=== PATIENT | female | born 1970 | race African-American/Black ===

== ENCOUNTER 2024-01-04 07:32 | Inpatient (IN) | payer OTHER, SELFPAY ==
[2024-01-04] VITALS (10 sets, daily range): BP systolic 145–164; BP diastolic 97–107; PULSE 83–109; RESP 16–20; TEMP 36.6–36.9; O2SAT 96–100; BMI 29.4; BMI 30.2
--- NOTE | ~2024-01-04 | CT_ITS ---
EXAMINATION: CT ABDOMEN AND PELVIS WITH CONTRAST CLINICAL INFORMATION: Epigastric pain. Nausea and vomiting. History of pancreatitis. COMPARISON: None available. TECHNIQUE: Multidetector volumetric images were obtained from the superior aspect of the liver through the pubic symphysis following administration 85 mL of Omnipaque 350 intravenous contrast. Sagittal and coronal reformatted images were obtained on the technologist's workstation. Oral contrast: No This CT examination was performed using dose optimization techniques as appropriate, variously including the following: *Automated exposure control *Adjustment of mA and/or kV according to patient size (this includes techniques or standardized protocols for targeted exams where dose is matched to indication/reason for exam; i.e. extremities or head) *Use of iterative reconstruction technique DLP: 562 mGy-cm FINDINGS: Visualized lung bases demonstrate mild dependent atelectasis. The liver is enlarged and demonstrates diffusely decreased attenuation. Ill-defined hypodensity adjacent to the falciform ligament is nonspecific but most suggestive of a region of more focal fatty infiltration. The gallbladder is normal in appearance. The pancreas is normal in size and demonstrates relatively homogeneous enhancement. There is prominent peripancreatic stranding/fluid, however, a well organized peripancreatic fluid collection is not present. The spleen is normal in size. Symmetrically enhancing kidneys. There is no hydronephrosis of either kidney. The adrenal glands are unremarkable. Normal stomach distention. Normal caliber loops of small and large bowel. There is mild colonic diverticulosis without CT evidence to suggest active diverticulitis. Normal appendix. Mild circumferential fatty mucosal infiltration of the proximal and mid colon, nonspecific. Normal caliber abdominal aorta demonstrating only minimal atherosclerotic disease. No retroperitoneal lymphadenopathy. Tiny fat-containing umbilical hernia. The bladder is normal in appearance. The uterus is surgically absent. No gross free pelvic fluid. No inguinal lymphadenopathy. Mild diffuse degenerative changes of the spine. CT/CT abdomen pelvis w IV con IMPRESSION: 1. CT findings most consistent with acute pancreatitis. Correlation with amylase and lipase recommended. 2. Hepatomegaly with diffusely decreased liver attenuation suggesting hepatic steatosis. Correlation with liver enzymes recommended. 3. Mild colonic diverticulosis without CT evidence to suggest active diverticulitis. 4. Mild circumferential fatty mucosal infiltration of the proximal and mid colon, nonspecific. Fleischner guidelines were followed. Electronically signed by: Vasquez Swenson MD 01/04/2024 11:06 AM EDT
[2024-01-04 08:02] LABS: MANUAL DIFF FLAG NO
--- NOTE | 2024-01-04 08:15 | ED_ITS ---
HPI - Abdominal Pain General Chief Complaint: Abdominal Pain Stated Complaint: Pancreatitis Time Seen by Provider: 01/04/24 07:59 Source: patient Mode of arrival: ambulatory Limitations: no limitations History of Present Illness ED Provider: AMINATA MCKAY narrative: 53 yo female with PMH of HTN, fibromyalgia, 3 years ago had ETOH induced pancreatitis - she notes she ate crab and lobster with wine on Monday and woke up yesterday AM with n/v and abdominal pain and bloating. She thinks she has pancreatitis again. She has no fevers. She cannot keep anything down. No one else is sick. No prior abdominal surgeries. She notes she only drinks on special occasions MD elicited complaint: abdominal pain Pertinent past history: other (pancreatitis) Onset (ago): day(s) (1) Pain Consistency: constant Location: epigastric Severity: severe Quality: stabbing Radiation: bilateral flank and back Migration to: no migration Exacerbating factors: eating and movement Context: history of similar episodes Associated symptoms: nausea and vomiting Related Data Allergies Allergy/AdvReac Type Severity Reaction Status Date / Time No Known Allergies Allergy Verified 01/04/24 07:45 Review of Systems Review of Systems Constitutional : No Weight loss, No Fever, No Chills ENT/Mouth : No sore throat, No Rhinorrhea Eyes: No Swelling, No Redness Cardiovascular : No Chest Pain, No SOB, NoEdema Respiratory : No Cough, No Sputum, No Wheezing Gastrointestinal : Positive Nausea, Positive Vomiting, no Diarrhea, positive abdominal Pain, No Hematochezia, No Melena Genitourinary : No Dysuria, No Urinary Frequency, No Hematuria, No Urgency Musculoskeletal : No joint pain, No Myalgias, No Joint Swelling Skin : No Skin Lesions, No rash Neuro : No Weakness, No Numbness, No Dizziness, No Headache All other systems reviewed and are negative. [facility] Past Medical History Attestation statement: The following information was validated with the patient. Medical History Pancreatitis Fibromyalgia HTN (hypertension) Social History Social History (Updated 01/04/24 @ 08:27 by Vivienne Carrasco DO) Alcohol intake: current Alcohol intake frequency: holidays/special occasions only Patient Tobacco Use Status: Never used Tobacco Advance Directives: No Advance Directives Information Provided: No Do you have a plan to hurt others: No Plan Patient : No Physical Exam ED Vital Signs: Vital Signs - 24 hr 01/04/24 07:40 01/04/24 08:12 01/04/24 10:07 Temperature 98.5 F Pulse Rate 99 109 H 109 H Respiratory Rate 20 17 Blood Pressure 154/103 H 146/97 H Pulse Oximetry 100 99 96 Oxygen Delivery Method Room Air Room Air Room Air BMI result Body Mass Index 29.4 Appearance: Alert. Oriented X3. appears in pain mild acute distress. Eyes: Pupils equal, round and reactive to light. ENT: Pharynx dry MM Neck: Normal inspection. Neck supple. CVS: Normal heart rate and rhythm. Pulses normal. Respiratory: No respiratory distress. Breath sounds normal. Abdomen: Soft and moderate epigastric pain no rebound. Skin: Skin warm and dry. pale skin color. Normal skin turgor. Extremities: No lower extremity edema. Neuro: Oriented X 3. No motor deficit. No sensory deficit. Medical Decision Making Medical Decision Making [facility] Narrative: 53 yo female with PMH of HTN, fibromyalgia, ETOH induced pancreatitis here with c/o n/v and epigastric pain after drinking on Monday at this time will need basic labs, IVF x 1L, IV dilaudid for pain and CT scan for pancreatitis. She denies concerns for ETOH withdrawal. Differential Diagnosis Differential Diagnoses: The differential diagnosis associated with the presentation includes GERD< gastritis, pancreatitis, biliary colic, PUD, enteritis Admission/Observation Consideration of admission/observation: Escalation of care including admission/observation considered admit for pain control and pancreatitis Consult Healthcare Provider Management of the patient was discussed with: Hospitalist (will admit) Lab Data [facility] Lab Attestation statement: I reviewed the patient's lab results. 01/04/24 07:58 01/04/24 07:58 Labs: Lab Results 01/04/24 01/04/24 Range/Units 07:58 10:02 WBC 9.5 (4.8-10.8) X10*3/uL RBC 4.34 (4.20-5.50) X10*6/uL Hgb 15.1 (12.0-16.0) g/dl Hct 40.4 (37.0-47.0) % MCV 93.1 (80.0-98.0) fL MCH 34.8 H (27.0-33.0) pg MCHC 37.4 H (31.0-35.0) g/dl RDW 14.1 (11.0-16.0) % Plt Count 219 (160-400) X10*3/uL MPV 11.0 (9.4-12.3) fL Immature Gran % (Auto) 0.5 H (0.0-0.4) % Neut % (Auto) 78.2 H (45-73) % Lymph % (Auto) 13.4 L (20-40) % [place] % (Auto) 7.6 (2-11) % Eos % (Auto) 0.1 (0-4) % Baso % (Auto) 0.2 (0-2) % Lymph # (Auto) 1.3 (1.2-4.9) X10*3/uL [place] # (Auto) 0.7 (0.1-1.2) X10*3/uL Eos # (Auto) 0.0 (0.0-0.4) X10*3/uL Baso # (Auto) 0.0 (0.0-0.2) X10*3/uL Abs Immat Gran (auto) 0.05 H (0.00-0.03) X10*3/uL Absolute Neuts (auto) 7.4 (2.0-8.3) x10*3/uL Absolute Nucleated RBC 0.000 (0.0-0.012) X10*3/uL Nucleated RBC % (auto) 0.0 (0.0-0.2) /100WBC Sodium 138 (135-145) mmol/L Potassium 3.3 (3.3-5.1) mmol/L Chloride 95 L (96-108) mmol/L Carbon Dioxide 25 (22-29) mmol/L Anion Gap 21 H (12-20) BUN 5 L (9-16) mg/dL Creatinine 0.68 (0.5-1.4) mg/dL Estim Creat Clear Calc 94.0 Estimated GFR > 60 Random Glucose 117 H (60-115) mg/dL Calcium 9.5 (8.4-10.2) mg/dL Total Bilirubin 1.5 H (0.0-1.0) mg/dL AST 69 H (5-31) U/L ALT 51 H (0-31) U/L Alkaline Phosphatase 115 (39-117) U/L Lactate Dehydrogenase 337 H (122-220) U/L Total Protein 8.4 H (6.5-8.0) g/dL Albumin 4.4 (3.5-5.0) g/dL Lipase 353 H (8-78) U/L Beta HCG, Quant < 2 mIU/mL Urine Color Yellow Urine Appearance Clear Urine pH 7.0 (5.0-9.0) Ur Specific [place] 1.025 (1.005-1.025) Urine Protein Trace (Neg-Trace) mg/dL Urine Glucose (UA) Negative (Negative) mg/dL Urine Ketones 40 (Negative) mg/dL Urine Blood Negative (Negative) Urine Nitrite Negative (Negative) Ur Leukocyte Esterase Negative (Negative) Ethyl Alcohol < 10 mg/dL Independent Interpretation I performed an independent interpretation of an: CT Scan (pancreatitis) Radiology Impression Discussion of test interpretation with radiology: I have reviewed the radiologist's reading. Independent Historian Clinical information obtained from an independent historian. History obtained from or confirmed by: Spouse Medications Administered Discontinued Medications Generic Name Dose Route Start Last Admin Trade Name Freq PRN Reason Stop Dose Admin Hydromorphone HCl 1 mg 01/04/24 08:16 01/04/24 08:35 Hydromorphone Hcl 1 Mg/Ml Syringe IVPUSH 01/04/24 08:17 1 mg ONCE ONE Administration Protocol Hydromorphone HCl 1 mg 01/04/24 08:46 01/04/24 08:50 Hydromorphone Hcl 1 Mg/Ml Syringe IVPUSH 01/04/24 08:47 1 mg ONCE ONE Administration Protocol Hydromorphone HCl 1 mg 01/04/24 09:51 01/04/24 09:59 Hydromorphone Hcl 1 Mg/Ml Syringe IVPUSH 01/04/24 09:52 1 mg ONCE ONE Administration Protocol Lactated Ringer's 1,000 mls @ 999 mls/hr 01/04/24 08:16 01/04/24 09:45 Lr IV 01/04/24 09:16 Infused .Q1H1M ONE Infusion Acetaminophen 1,000 mg in 100 mls @ 400 mls/hr 01/04/24 09:51 01/04/24 10:21 Ofirmev IV 01/04/24 10:05 Infused ONCE ONE Infusion Iohexol 85 ml 01/04/24 09:43 01/04/24 09:44 Iohexol 350 Mg/Ml 75 Ml Infus..Btl IV 01/04/24 09:44 85 ml ONCE ONE Administration Ondansetron HCl 4 mg 01/04/24 08:16 01/04/24 08:35 Ondansetron Hcl 4 Mg/2 Ml Vial IVPUSH 01/04/24 08:17 4 mg ONCE ONE Administration Critical Care Time Critical Care Time Critical Care Time: Yes Total Critical Care Time: 60 Attestation: repeat IV dilaudid x 3, admission, repeat assessments I attest to this time spent taking care of the patient Discharge Plan Discharge Clinical Impression: Abdominal pain, Pancreatitis Patient Disposition: Admitted As Inpatient Print Language: Yi
[2024-01-04 08:23] LABS: Basophils Percent Auto 0.2 % (0-2); Eosinophils Percent Auto 0.1 % (0-4); Hematocrit 40.4 % (37.0-47.0); Hemoglobin 15.1 g/dl (12.0-16.0); Imm Gran Abs Auto 0.05 X10*3/uL (0.00-0.03); Imm Gran Pct Auto 0.5 % (0.0-0.4); Lymphocytes Absolute Auto 1.3 X10*3/uL (1.2-4.9); Lymphocytes Percent Auto 13.4 % (20-40); Mean Corpuscular HGB Conc 37.4 g/dl (31.0-35.0); Mean Corpuscular Hemoglobin 34.8 pg (27.0-33.0); Mean Corpuscular Volume 93.1 fL (80.0-98.0); Monocytes Absolute Auto 0.7 X10*3/uL (0.1-1.2); Monocytes Percent Auto 7.6 % (2-11); Neutrophils Absolute Auto 7.4 x10*3/uL (2.0-8.3); Neutrophils Percent Auto 78.2 % (45-73); Platelet Count 219 X10*3/uL (160-400); Red Blood Count 4.34 X10*6/uL (4.20-5.50); Red Cell Distribution Width 14.1 % (11.0-16.0); White Blood Count 9.5 X10*3/uL (4.8-10.8)
[2024-01-04 08:33] LABS: Alanine Aminotransferase 51 U/L (0-31); Albumin Level 4.4 g/dL (3.5-5.0); Alkaline Phosphatase 115 U/L (39-117); Anion Gap 21 (12-20); Aspartate Amino Transferase 69 U/L (5-31); Bilirubin Total 1.5 mg/dL (0.0-1.0); Blood Urea Nitrogen 5 mg/dL (9-16); Calcium 9.5 mg/dL (8.4-10.2); Carbon Dioxide 25 mmol/L (22-29); Chloride 95 mmol/L (96-108); Estimated Glomerular Filt Rate > 60; Glucose Random 117 mg/dL (60-115); HCG Quantitative < 2 mIU/mL; Lactate Dehydrogenase 337 U/L (122-220); Potassium 3.3 mmol/L (3.3-5.1); Sodium 138 mmol/L (135-145); Total Protein 8.4 g/dL (6.5-8.0)
[2024-01-04] MEDS: HYDROmorphone HCl 1 MG/ML SYRINGE IVPUSH ×4 (08:35→12:46)
[2024-01-04] MEDS: ondansetron HCL 4 MG/2 ML VIAL IVPUSH ×2 (08:35→17:42)
[2024-01-04] MEDS: Lactated Ringers 1,000 ML 999 ML IV (08:35)
[2024-01-04 08:52] LABS: Ethanol < 10 mg/dL
[2024-01-04] MEDS: iohexoL 350 MG/ML 75 ML INFUS..BTL 85 ML IV (09:44)
[2024-01-04] MEDS: Acetaminophen 1,000 MG/100 ML PIGGYBACK 400 MG IV (09:59)
[2024-01-04 10:28] LABS: Lipase 353 U/L (8-78)
[2024-01-04 10:37] LABS: Appearance Urine Clear; Color Urine Yellow; Glucose Urine UA Negative (Negative); Leukocyte Esterase Urine Negative (Negative); Nitrite Urine Negative (Negative); Specific Gravity - Urine 1.025 (1.005-1.025); Urine Blood Negative (Negative); Urine Ketones 40 mg/dL (Negative); Urine Protein Trace mg/dL (Neg-Trace)
[2024-01-04] MEDS: Lactated Ringers 1,000 ML 100 ML IVCONT ×2 (11:24→21:05)
--- NOTE | 2024-01-04 11:40 | P.HPHOSP_ITS ---
History of Present Illness Date of Service: 01/04/24 Attending physician on admission: Mati Lee Chief Complaint: Abdominal pain Pt is a 53-year-old female with a PMH significant for?HTN, diverticulitis, GERD, and mood disorder who presents to the ED with?nausea, vomiting, and epigastric abdominal pain radiating to back since yesterday. Patient reports she and her went out to eat Monday night where she ate lobster and crabs, and drank a glass of wine and two mixed drinks. Pt awoke the next morning feeling bloated, distended, and with central abdominal pain that radiated to her back. Took some antacids, Tylenol, and Pepto-Bismol to no effect. Soon developed nausea, vomiting, and worsening abdominal pain. This morning pain was significantly increased to the point where patient could not get out of bed. Patient had previous episode of acute pancreatitis 3 years ago seen at [facility]. [place] symptoms were similar to then, so came to the ED for further evaluation. Patient denies chest pain/pressure, palpitations. No fever or chills. Denies SOB or difficulty breathing. Pt reports drinking around 5 drinks per week, usually wine with dinner. Denies daily alcohol consumption. In the ED pt was tachycardic up to 109 and hypertensive up to 154/103. Labs were significant for bilirubin 1.5, AST 69, ALT 51, lactate dehydrogenase 337, and lipase 353. No leukocytosis. Stable H& H. No significant electrolyte abnormalities. Renal function baseline. UA negative for UTI. ETOH undetectable. CT of abdomen and pelvis prominent peripancreatic stranding consistent with acute pancreatitis. Also found hepatomegaly with diffusely decreased liver attenuation suggestive of hepatic steatosis. Pt was treated with 2L IVF, ondansetron, hydromorphone, and acetaminophen. Pt will be admitted to the hospital for treatment further evaluation of acute pancreatitis likely secondary to alcohol use. Review of Systems 2 Review of Systems: Yes all other systems are reviewed and are negative [facility] Medical History Pancreatitis Fibromyalgia HTN (hypertension) Social History Alcohol intake: current Alcohol intake frequency: holidays/special occasions only Patient Tobacco Use Status: Never used Tobacco Advance Directives: No Advance Directives Information Provided: No Do you have a plan to hurt others: No Plan Patient : No Meds Allergies Allergy/AdvReac Type Severity Reaction Status Date / Time No Known Allergies Allergy Verified 01/04/24 07:45 Active Medications: Current Medications Lactated Ringer's (Lr) 1,000 mls @ 100 mls/hr IVCONT .Q10H BRIANDA Last Admin: 01/04/24 11:24 Dose: 100 mls/hr Home Medications ?Medication ?Instructions ?Recorded ?Confirmed ?Last Taken ?Type amlodipine 10 mg tablet 10 mg PO DAILY 01/04/24 Unknown History citalopram 20 mg tablet 20 mg PO DAILY 01/04/24 Unknown History gabapentin 600 mg tablet 600 mg PO TID 01/04/24 Unknown History omeprazole 40 mg capsule,delayed 40 mg PO BID 01/04/24 Unknown History release ondansetron HCl 4 mg tablet 4 mg PO Q8H PRN Nausea And Vomiting 01/04/24 Unknown History sucralfate 1 gram tablet 1 g PO QID 01/04/24 Unknown History Physical Exam 2 Vital Signs and Narrative: Vital Signs: Last Vital Signs Temp 98.5 F 01/04/24 07:40 Pulse 109 H 01/04/24 10:07 Resp 17 01/04/24 10:07 BP 146/97 H 01/04/24 10:07 Pulse Ox 96 01/04/24 10:07 O2 Del Method Room Air 01/04/24 10:07 BMI result Body Mass Index 29.4 Constitutional: Alert, looks uncomfortable, in no acute distress. Mental Status: Oriented to person, place and time. Eyes: Pupils are equal, round, and reactive to light. Ear, Nose, and Throat: Oropharynx clear, mucous membranes moist. Ears and nose without deformities. Trachea midline. Respiratory: Clear to auscultation bilaterally. No wheezing, rales, or rhonchi. Cardiovascular: S1, S2 regular. No murmurs, rubs, or gallops. Gastrointestinal: Abdomen soft, non-distended, with epigastric and LUQ tenderness. +BS Neurologic: Cranial nerves II-XII are grossly intact bilaterally. No focal neurological deficits. Moves all extremities spontaneously. Skin: Warm, dry. Extremities: No edema. Psychiatric: Normal mood and affect. Results Labs 01/04/24 07:58 01/04/24 07:58 Labs: Laboratory Results - last 24 hr 01/04/24 01/04/24 07:58 10:02 MCV 93.1 MCH 34.8 H MCHC 37.4 H RDW 14.1 Plt Count 219 MPV 11.0 Immature Gran % (Auto) 0.5 H Neut % (Auto) 78.2 H Lymph % (Auto) 13.4 L [place] % (Auto) 7.6 Eos % (Auto) 0.1 Baso % (Auto) 0.2 Lymph # (Auto) 1.3 [place] # (Auto) 0.7 Eos # (Auto) 0.0 Baso # (Auto) 0.0 Abs Immat Gran (auto) 0.05 H Absolute Neuts (auto) 7.4 Absolute Nucleated RBC 0.000 Nucleated RBC % (auto) 0.0 Anion Gap 21 H Estim Creat Clear Calc 94.0 Estimated GFR > 60 Random Glucose 117 H Calcium 9.5 Total Bilirubin 1.5 H AST 69 H ALT 51 H Alkaline Phosphatase 115 Lactate Dehydrogenase 337 H Total Protein 8.4 H Albumin 4.4 Lipase 353 H Beta HCG, Quant < 2 Urine Color Yellow Urine Appearance Clear Urine pH 7.0 Ur Specific [place] 1.025 Urine Protein Trace Urine Glucose (UA) Negative Urine Ketones 40 Urine Blood Negative Urine Nitrite Negative Ur Leukocyte Esterase Negative Ethyl Alcohol < 10 Imaging Radiologist's Impressions: Impressions Abdomen/Pelvis CT 01/04/24 09:41 IMPRESSION: 1. CT findings most consistent with acute pancreatitis. Correlation with amylase and lipase recommended. 2. Hepatomegaly with diffusely decreased liver attenuation suggesting hepatic steatosis. Correlation with liver enzymes recommended. 3. Mild colonic diverticulosis without CT evidence to suggest active diverticulitis. 4. Mild circumferential fatty mucosal infiltration of the proximal and mid colon, nonspecific. Fleischner guidelines were followed. Electronically signed by: Vasquez Swenson MD 01/04/2024 11:06 AM EDT Assessment and Plan (1) Pancreatitis: Qualifiers: Acute pancreatitis complication: no infection or necrosis Chronicity: a cute Pancreatitis type: alcohol induced Qualified Code(s): K85.20 - Alcohol induced acute pancreatitis without necrosis or infection Status: Acute Plan Pt is a 53-year-old female with a PMH significant for?HTN, diverticulitis, GERD, and mood disorder who presents to the ED with?nausea, vomiting, and epigastric abdominal pain radiating to back since yesterday. Pt will be admitted to the hospital for treatment further evaluation of acute pancreatitis likely secondary to alcohol use. Acute pancreatitis Epigastric abd pain radiating to back, elevated lipase, CT showing peripancreatic stranding Likely secondary to alcohol use Triglycerides WNL, no CBD dilation Bowel rest, IVF, pain management Alcohol dependence Pt reports drinks around 5 drinks per week, mostly wine with dinner CT showing hepatic steatosis Monitor on CIWA HTN Continue amlodipine Fibromyalgia Continue gabapentin GERD Continue PPI Full Code Attending:?Dr. Lee DVT Prophylaxis: Lovenox Pt will require a hospitalization of at least two nights for treatment of?acute pancreatitis likely secondary to alcohol use that will require bowel rest, IVF, and IV analgesics. Quality Stroke Does the patient have a stroke diagnosis?: No VTE Prior VTE?: No VTE Risk Level:: Medical - moderate - high VTE Device Contraindication: Treatment Not Indicated VTE Drug Contraindication: N/A - Med Ordered
[2024-01-04 12:06] LABS: Cholesterol 248 mg/dL (<200); HDL Cholesterol 131 mg/dL (>40); LDL Cholesterol Calculated 98 mg/dL (<100); Triglycerides 95 mg/dL (<150)
[2024-01-04] MEDS: Enoxaparin Sodium 40 MG/0.4 ML SYRINGE SUBCUT (13:04)
--- NOTE | 2024-01-04 14:02 | PHA.MEDREC ---
Addendum entered by Brian Cherry RPh 01/04/24 14:23: MED REC CHECKED BY [facility] Original Note: Pharmacy Consult ? Medication Reconciliation Pharmacy has completed the medication reconciliation. Spoke to patient to confirm med list. Patient was able to name off her medications and frequency. Patient states she is no longer taking Citalopram [address] mg[address] just put her on Vitamin B-12, Vitamin C, and Vitamin D, however patient didn't know the dose.
--- NOTE | 2024-01-04 15:00 | PC.NURSE ---
Pt states she feels her pain is uncontrolled. asking for larger dose of dilaudid more frequently.
[2024-01-04] MEDS: Acetaminophen 325 MG TABLET 650 MG PO ×2 (16:06→23:32)
[2024-01-04] MEDS: Sucralfate 1 GM TABLET PO ×2 (16:06→20:59)
--- NOTE | 2024-01-04 16:45 | PC.NURSE ---
assumed care of pt at 1500, pt reporting con't 01/27 LUQ pain. per prior RN pt had been recieving dilaudid 1mg q 4 hr with pain relief lasting ~ 1hr after administration. PRN order for 0.5 mg dilaudid changed to 1mg dilaudid but pt reporting that the medication is not enough to control her pain. provider notified for clarification of pain management
[2024-01-04] MEDS: HYDROmorphone HCl 0.5 MG/0.5 ML SYRINGE 1 MG IVPUSH ×2 (17:19→20:59)
[2024-01-04] MEDS: Lidocaine 4 % Patch ADH..PATCH 1 PATCH TRANSDERMA (17:42)
--- NOTE | 2024-01-04 20:28 | PC.NURSE ---
provider aware of elevated bp, plan to restart bp medication in am. pt currently reporting increased abd pain w PO intake.
[2024-01-04] MEDS: Melatonin 3 MG TABLET 6 MG PO (20:59)
[2024-01-04] MEDS: Gabapentin 600 MG TABLET PO (20:59)
[2024-01-04] MEDS: Omeprazole 40 MG CAPSULE.DR PO (20:59)
[2024-01-05 00:17] VITALS: RESP 17
[2024-01-05] MEDS: HYDROmorphone HCl 0.5 MG/0.5 ML SYRINGE 1 MG IVPUSH ×6 (00:17→19:44)
[2024-01-05 03:21] VITALS: BP 158/97; PULSE 95; RESP 16; TEMP 36.8; O2SAT 96
[2024-01-05 04:26] VITALS: RESP 16
[2024-01-05 06:19] LABS: Anion Gap 18 (12-20); Blood Urea Nitrogen 5 mg/dL (9-16); Calcium 8.6 mg/dL (8.4-10.2); Carbon Dioxide 29 mmol/L (22-29); Chloride 91 mmol/L (96-108); Creatinine Clr Calc Pharmacy 122.2; Estimated Glomerular Filt Rate > 60; Glucose Random 85 mg/dL (60-115); Magnesium 0.8 mg/dL (1.6-2.6); Sodium 135 mmol/L (135-145)
[2024-01-05] MEDS: Lactated Ringers 1,000 ML 100 ML IVCONT ×3 (06:21→20:02)
[2024-01-05] MEDS: Magnesium Sulfate/H2O 2 GM/50 ML PIGGYBACK IV ×2 (06:28→08:26)
[2024-01-05 08:00] VITALS: BP 134/92; PULSE 109; RESP 16; TEMP 36.7; O2SAT 92
[2024-01-05] MEDS: ondansetron HCL 4 MG/2 ML VIAL IVPUSH (08:16)
[2024-01-05] MEDS: Lidocaine 4 % Patch ADH..PATCH 1 PATCH TRANSDERMA (08:19)
[2024-01-05] MEDS: Potassium Chloride ER 20 MEQ TAB.ER.PRT 40 MEQ PO (08:20)
[2024-01-05] MEDS: Sucralfate 1 GM TABLET PO ×4 (08:21→20:01)
[2024-01-05] MEDS: amLODIPine Besylate 10 MG TABLET PO (08:21)
[2024-01-05] MEDS: Omeprazole 40 MG CAPSULE.DR PO ×2 (08:21→20:02)
[2024-01-05] MEDS: Gabapentin 600 MG TABLET PO ×3 (08:21→20:02)
[2024-01-05] MEDS: Multivitamin TABLET 1 TAB PO (08:21)
[2024-01-05] MEDS: 0.9 % Sodium Chloride Flush 3 ML SYRINGE IVFLUSH (08:31)
--- NOTE | 2024-01-05 10:40 | MHC.CM.PN ---
pt lives with has no previous services is independent has own ride home dc plan home no services
[2024-01-05] MEDS: Enoxaparin Sodium 40 MG/0.4 ML SYRINGE SUBCUT (14:06)
--- NOTE | 2024-01-05 14:12 | HO.PM.IMPN ---
Subjective Subjective Date of Service: 01/05/24 Interval History: acute pancreaitis Review of Systems has similar abd pain feels constipated no fevers Physical Exam Vital Signs: Vital Signs: Last Vital Signs Temp 98.1 F 01/05/24 08:00 Pulse 109 H 01/05/24 08:00 Resp 16 01/05/24 08:00 BP 134/92 H 01/05/24 08:00 Pulse Ox 92 01/05/24 08:00 O2 Del Method Room Air 01/05/24 08:00 BMI result Body Mass Index 30.2 Appearance: Alert.? Oriented X3.? cvs: rrr, [id number] , no murmur res: clear to auscultation ,no rhonchii or wheezing abd: no rebound or guarding ,epigastric/luq , bs present. ext pulses present , no cyanosis . neuro: axo3 , nonfocal. Objective Data Active Medications Acetaminophen (Acetaminophen 325 Mg Tablet) 650 mg PO Q6H PRN PRN Reason: Pain, Mild (Pain Scale 1-3), fever or headache Last Admin: 01/04/24 23:32 Dose: 650 mg Documented By: ROSHAN Amlodipine Besylate (Amlodipine Besylate 10 Mg Tablet) 10 mg PO DAILY [facility]; Protocol Last Admin: 01/05/24 08:21 Dose: 10 mg Documented By: NIESHA Benzonatate (Benzonatate 100 Mg Capsule) 100 mg PO TID PRN PRN Reason: Cough Bisacodyl (Bisacodyl 10 Mg Supp.Rect) 10 mg SC BEDTIME [facility] Calcium Carbonate (Calcium Carbonate 750 Mg Tab.Chew) 750 mg PO Q4H PRN PRN Reason: Heartburn Docusate Sodium (Docusate Sodium 100 Mg/10 Ml Liquid) 100 mg PO BID [facility] Enoxaparin Sodium (Enoxaparin Sodium 40 Mg/0.4 Ml Syringe) 40 mg SUBCUT Q24H [facility] Last Admin: 01/05/24 14:06 Dose: 40 mg Documented By: NIESHA Gabapentin (Gabapentin 600 Mg Tablet) 600 mg PO TID [facility] Last Admin: 01/05/24 08:21 Dose: 600 mg Documented By: NIESHA Hydromorphone HCl (Hydromorphone Hcl 0.5 Mg/0.5 Ml Syringe) 1 mg IVPUSH Q3H PRN; Protocol PRN Reason: Pain, Severe (Pain Scale 7-10) Last Admin: 01/05/24 12:30 Dose: 1 mg Documented By: NIESHA Lactated Ringer's (Lr) 1,000 mls @ 100 mls/hr IVCONT .Q10H [facility] Last Admin: 01/05/24 06:21 Dose: 100 mls/hr Documented By: NIESHA Lidocaine (Lidocaine 4 % Patch Adh..Patch) 1 patch TRANSDERMA DAILY [facility]; Protocol Last Admin: 01/05/24 08:19 Dose: 1 patch Documented By: NIESHA Magnesium Hydroxide (Milk Of Magnesia 30 Ml Oral.Susp) 30 ml PO DAILY PRN PRN Reason: Constipation Melatonin (Melatonin 3 Mg Tablet) 6 mg PO BEDTIME PRN PRN Reason: Insomnia Last Admin: 01/04/24 20:59 Dose: 6 mg Documented By: LATHA-ZADRCaitlin Multivitamins/Vitamin C (Multivitamin Tablet) 1 tab PO DAILY [facility] Last Admin: 01/05/24 08:21 Dose: 1 tab Documented By: NIESHA Omeprazole (Omeprazole 40 Mg Capsule.) 40 mg PO BID [facility] Last Admin: 01/05/24 08:21 Dose: 40 mg Documented By: NISEHA Ondansetron HCl (Ondansetron Hcl 4 Mg/2 Ml Vial) 4 mg IVPUSH Q8H PRN PRN Reason: Nausea and Vomiting Last Admin: 01/05/24 08:16 Dose: 4 mg Documented By: NIESHA Sodium Chloride (0.9 % Sodium Chloride Flush 3 Ml Syringe) 3 ml IVFLUSH QSHIFT [facility] Last Admin: 01/05/24 08:31 Dose: 3 ml Documented By: NIESHA Sucralfate (Sucralfate 1 Gm Tablet) 1 gm PO QID [facility] Last Admin: 01/05/24 14:07 Dose: 1 gm Documented By: NIESHA Labs 01/04/24 07:58 01/05/24 05:24 Labs: Laboratory Results - last 24 hr 01/05/24 05:24 Anion Gap 18 Estim Creat Clear Calc 122.2 Estimated GFR > 60 Random Glucose 85 Calcium 8.6 D Magnesium 0.8 L* Assessment and Plan (1) Pancreatitis: Status: Acute (2) Abdominal pain: Status: Acute Assessment and Plan: 53-year-old female with a PMH significant for?HTN, diverticulitis, GERD, and mood disorder who presents to the ED with?nausea, vomiting, and epigastric abdominal pain radiating to back since yesterday. Pt will be admitted to the hospital for treatment further evaluation of acute pancreatitis likely secondary to alcohol use. Acute pancreatitis Epigastric abd pain radiating to back, elevated lipase, CT showing peripancreatic stranding abd pain improving Likely secondary to alcohol use Triglycerides WNL, no CBD dilation. plan:Bowel rest, IVF, pain management constipation: colace ,biscodyl Alcohol dependence Pt reports drinks around 5 drinks per week, mostly wine with dinner CT showing hepatic steatosis Monitor on CIWA HTN Continue amlodipine Fibromyalgia Continue gabapentin GERD Continue PPI Full Code DVT Prophylaxis: Lovenox ongoing hospitalization need for treatment of?acute pancreatitis likely secondary to alcohol use that will require bowel rest, IVF, and IV analgesics Quality Stroke Does the patient have a stroke diagnosis?: No VTE Prior VTE?: No VTE Risk Level:: Medical - moderate - high VTE Device Contraindication: Treatment Not Indicated VTE Drug Contraindication: N/A - Med Ordered
[2024-01-05 16:00] VITALS: BP 124/85; PULSE 122; RESP 14; TEMP 36.8; O2SAT 93
[2024-01-05 19:23] VITALS: BP 123/84; PULSE 121; RESP 18; TEMP 36.9; O2SAT 94
[2024-01-05] MEDS: Melatonin 3 MG TABLET 6 MG PO (20:01)
[2024-01-05] MEDS: Docusate Sodium 100 MG/10 ML LIQUID PO (20:02)
[2024-01-05] MEDS: bisacodyL 10 MG SUPP.RECT PR (20:02)
[2024-01-06] VITALS (9 sets, daily range): BP systolic 108–115; BP diastolic 76–84; PULSE 108–114; RESP 17–18; TEMP 36.7–36.9; O2SAT 90–94
[2024-01-06] MEDS: HYDROmorphone HCl 0.5 MG/0.5 ML SYRINGE 1 MG IVPUSH ×4 (00:18→11:43)
[2024-01-06] MEDS: 0.9 % Sodium Chloride Flush 3 ML SYRINGE IVFLUSH ×2 (00:26→13:58)
[2024-01-06] MEDS: Lactated Ringers 1,000 ML 100 ML IVCONT (04:49)
--- NOTE | 2024-01-06 06:10 | PC.NURSE ---
Patient woke c/o shortness of breath. O2 sats were 85%, Hospitalist notified, patient placed on O2 2L NC . O2 sats 93%, vital signs stable. Patient resting comfortably at present , will continue to monitor.
[2024-01-06 06:42] LABS: Anion Gap 13 (12-20); Blood Urea Nitrogen 12 mg/dL (9-16); Calcium 8.3 mg/dL (8.4-10.2); Carbon Dioxide 31 mmol/L (22-29); Chloride 91 mmol/L (96-108); Creatinine Clr Calc Pharmacy 98.2; Estimated Glomerular Filt Rate > 60; Glucose Random 101 mg/dL (60-115); Potassium 3.1 mmol/L (3.3-5.1); Sodium 132 mmol/L (135-145)
[2024-01-06] MEDS: Sucralfate 1 GM TABLET PO ×2 (08:36→11:43)
[2024-01-06] MEDS: Multivitamin TABLET 1 TAB PO (08:36)
[2024-01-06] MEDS: amLODIPine Besylate 10 MG TABLET PO (08:36)
[2024-01-06] MEDS: Gabapentin 600 MG TABLET PO ×2 (08:36→13:58)
[2024-01-06] MEDS: Omeprazole 40 MG CAPSULE.DR PO (08:36)
[2024-01-06] MEDS: Docusate Sodium 100 MG/10 ML LIQUID PO (08:37)
[2024-01-06] MEDS: Potassium Chloride ER 20 MEQ TAB.ER.PRT 40 MEQ PO (08:37)
[2024-01-06] MEDS: Lidocaine 4 % Patch ADH..PATCH 1 PATCH TRANSDERMA (08:38)
[2024-01-06] MEDS: Albuterol/Iprat 2.5/0.5MG 3 ML AMPUL.NEB INHALE ×2 (11:26→14:53)
[2024-01-06] MEDS: Enoxaparin Sodium 40 MG/0.4 ML SYRINGE SUBCUT (11:43)
--- NOTE | 2024-01-06 11:44 | HO.PM.IMPN ---
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 Oriented X3.? cvs: rrr, [id number] , no murmur res: air entry fair, diminshed at bases.no rales or wheezing abd: no rebound or guarding ,epigastric/luq , bs present. ext pulses present , no cyanosis . neuro: axo3 , nonfocal. Objective Data Active Medications Acetaminophen (Acetaminophen 325 Mg Tablet) 650 mg PO Q6H PRN PRN Reason: Pain, Mild (Pain Scale 1-3), fever or headache Last Admin: 01/04/24 23:32 Dose: 650 mg Documented By: ROSHAN Albuterol/Ipratropium (Albuterol/Iprat 2.5/0.5mg 3 Ml Ampul.Neb) 3 ml INHALE RQ4H WHILE AWAKE [facility] Last Admin: 01/06/24 11:26 Dose: 3 ml Documented By: ROZINA Amlodipine Besylate (Amlodipine Besylate 10 Mg Tablet) 10 mg PO DAILY [facility]; Protocol Last Admin: 01/06/24 08:36 Dose: 10 mg Documented By: COTEMA Benzonatate (Benzonatate 100 Mg Capsule) 100 mg PO TID PRN PRN Reason: Cough Bisacodyl (Bisacodyl 10 Mg Supp.Rect) 10 mg DC BEDTIME [facility] Last Admin: 01/05/24 20:02 Dose: 10 mg Documented By: LOULOU Calcium Carbonate (Calcium Carbonate 750 Mg Tab.Chew) 750 mg PO Q4H PRN PRN Reason: Heartburn Docusate Sodium (Docusate Sodium 100 Mg/10 Ml Liquid) 100 mg PO BID [facility] Last Admin: 01/06/24 08:37 Dose: 100 mg Documented By: COTFLORES Enoxaparin Sodium (Enoxaparin Sodium 40 Mg/0.4 Ml Syringe) 40 mg SUBCUT Q24H [facility] Last Admin: 01/06/24 11:43 Dose: 40 mg Documented By: COTFLORES Gabapentin (Gabapentin 600 Mg Tablet) 600 mg PO TID [facility] Last Admin: 01/06/24 08:36 Dose: 600 mg Documented By: ROSEMARYEMA Hydromorphone HCl (Hydromorphone Hcl 0.5 Mg/0.5 Ml Syringe) 1 mg IVPUSH Q3H PRN; Protocol PRN Reason: Pain, Severe (Pain Scale 7-10) Last Admin: 01/06/24 11:43 Dose: 1 mg Documented By: JORJE Hydromorphone HCl (Hydromorphone Hcl 2 Mg Tablet) 1 mg PO Q6H PRN PRN Reason: Pain, Moderate(Pain Scale 4-6) Lactated Ringer's (Lr) 1,000 mls @ 100 mls/hr IVCONT .Q10H [facility] Last Admin: 01/06/24 04:49 Dose: 100 mls/hr Documented By: LOULOU Lidocaine (Lidocaine 4 % Patch Adh..Patch) 1 patch TRANSDERMA DAILY [facility]; Protocol Last Admin: 01/06/24 08:38 Dose: 1 patch Documented By: JORJE Magnesium Hydroxide (Milk Of Magnesia 30 Ml Oral.Susp) 30 ml PO DAILY PRN PRN Reason: Constipation Melatonin (Melatonin 3 Mg Tablet) 6 mg PO BEDTIME PRN PRN Reason: Insomnia Last Admin: 01/05/24 20:01 Dose: 6 mg Documented By: LOULOU Multivitamins/Vitamin C (Multivitamin Tablet) 1 tab PO DAILY [facility] Last Admin: 01/06/24 08:36 Dose: 1 tab Documented By: JORJE Omeprazole (Omeprazole 40 Mg Capsule.Dr) 40 mg PO BID [facility] Last Admin: 01/06/24 08:36 Dose: 40 mg Documented By: JORJE Ondansetron HCl (Ondansetron Hcl 4 Mg/2 Ml Vial) 4 mg IVPUSH Q8H PRN PRN Reason: Nausea and Vomiting Last Admin: 01/05/24 08:16 Dose: 4 mg Documented By: GRAZIC Sodium Chloride (0.9 % Sodium Chloride Flush 3 Ml Syringe) 3 ml IVFLUSH QSHIFT [facility] Last Admin: 01/06/24 08:37 Dose: Not Given Documented By: COTEMA Non-Admin Reason: IV Running Sucralfate (Sucralfate 1 Gm Tablet) 1 gm PO QID [facility] Last Admin: 01/06/24 11:43 Dose: 1 gm Documented By: COTFLORES Labs 01/04/24 07:58 01/06/24 05:40 Labs: Laboratory Results - last 24 hr 01/06/24 05:40 Hold Purple Top SEE NOTE Anion Gap 13 Estim Creat Clear Calc 98.2 Estimated GFR > 60 Random Glucose 101 Calcium 8.3 L Magnesium 2.0 Assessment and Plan (1) Pancreatitis: Status: Acute (2) Abdominal pain: Status: Acute Assessment and Plan: 53-year-old female with a PMH significant for?HTN, diverticulitis, GERD, and mood disorder who presents to the ED with?nausea, vomiting, and epigastric abdominal pain radiating to back since yesterday. Pt will be admitted to the hospital for treatment further evaluation of acute pancreatitis likely secondary to alcohol use. Acute pancreatitis Epigastric abd pain radiating to back, elevated lipase, CT showing peripancreatic stranding abd pain improving Likely secondary to alcohol use Triglycerides WNL, no CBD dilation. plan:trail of liquid diet, IVF, pain management -try to add po dilaudid to dec demand of iv pain med. ? hypoxia possible sec to atelecatsis ( due to lying down /poor respirtaory efforts) ct abd earlier -shows atelactasis she also has 1 pack daily smonking incentive sharif,chest physio, nebs ,taper oxygen to sats 90% ,moniter repiratory status . constipation: colace ,biscodyl Alcohol dependence Pt reports drinks around 5 drinks per week, mostly wine with dinner CT showing hepatic steatosis Monitor on CIWA HTN Continue amlodipine Fibromyalgia Continue gabapentin GERD Continue PPI Full Code DVT Prophylaxis: Lovenox ongoing hospitalization need for treatment of?acute pancreatitis likely secondary to alcohol use that will require bowel rest, IVF, and IV analgesics, ? hypoxia -need close respiratory monitering Quality Stroke Does the patient have a stroke diagnosis?: No VTE Prior VTE?: No VTE Risk Level:: Medical - moderate - high VTE Device Contraindication: Treatment Not Indicated VTE Drug Contraindication: N/A - Med Ordered
[2024-01-06] MEDS: Milk of Magnesia 30 ML ORAL.SUSP PO (13:58)
[2024-01-06] MEDS: HYDROmorphone HCl 2 MG TABLET 1 MG PO (13:59)
--- NOTE | 2024-01-06 15:29 | P.DS_ITS ---
DS: Providers Provider Date of Service: 01/06/24 Date of admission: 01/04/24 12:45 Date of discharge: 01/06/24 Primary care physician: Edmund Arambula MD Attending physician on discharge: Mati Lee Discharging clinician: Mati Lee DS: Diagnosis Discharge Diagnosis (1) Pancreatitis: Status: Acute (2) Abdominal pain: Status: Acute DS: Summary Hospital Course Hospital Course: Hpi: 53-year-old female with a PMH significant for?HTN, diverticulitis, GERD, and mood disorder who presents to the ED with?nausea, vomiting, and epigastric abdominal pain radiating to back since yesterday. Patient reports she and her went out to eat Monday night where she ate lobster and crabs, and drank a glass of wine and two mixed drinks. Pt awoke the next morning feeling bloated, distended, and with central abdominal pain that radiated to her back. Took some antacids, Tylenol, and Pepto-Bismol to no effect. Soon developed nausea, vomit ing, and worsening abdominal pain. This morning pain was significantly increased to the point where patient could not get out of bed. Patient had previous episode of acute pancreatitis 3 years ago seen at [facility]. [place] symptoms were similar to then, so came to the ED for further evaluation. Patient denies chest pain/pressure, palpitations. No fever or chills. Denies SOB or difficulty breathing. Pt reports drinking around 5 drinks per week, usually wine with dinner. Denies daily alcohol consumption. In the ED pt was tachycardic up to 109 and hypertensive up to 154/103. Labs were significant for bilirubin 1.5, AST 69, ALT 51, lactate dehydrogenase 337, and lipase 353. No leukocytosis. Stable H& H. No significant electrolyte abnormalities. Renal function baseline. UA negative for UTI. ETOH undetectable. CT of abdomen and pelvis prominent peripancreatic stranding consistent with acute pancreatitis. Also found hepatomegaly with diffusely decreased liver attenuation suggestive of hepatic steatosis. Pt was treated with 2L IVF, ondansetron, hydromorphone, and acetaminophen. Pt will be admitted to the hospital for treatment further evaluation of acute pancreatitis likely secondary to alcohol use. Hospital course: 53-year-old female with a PMH significant for?HTN, diverticulitis, GERD, and mood disorder who presents to the ED with?nausea, vomiting, and epigastric abdominal pain radiating to back since yesterday. Pt will be admitted to the hospital for treatment further evaluation of acute pancreatitis likely secondary to alcohol use-admitted for Acute pancreatitis with Epigastric abd pain radiating to back, elevated lipase, CT showing peripancreatic stranding-started on bwel rest,hydration and pain meds -seems improved ,tolerating diet ,pain also improved significantly. strongly advised to abstain from alcohol. constipation: colace ,biscodyl atelactasis -seems improving ,hypoxia resolved ,walking sats 93% , continue incentive spriometry. plan: strongly advised to abstain from alcohol. dilaudid po 1 mg bid prn given 3 days supply. Above management discussed with the patient in detail length she understand and in agreement with the above plan, time spent 40 minutes and 50% time spent on counseling. Time Attestation Total time managing care of this patient today: 40 mintues. Discharge Coordination Time (in mins): 40 min Quality: Safe Use of Opioids Does Pt have an Active Cancer Diagnosis on the Problem List?: No Quality: Stroke Does the patient have a stroke diagnosis?: No Physical Exam Vital Signs: Vital Signs: Last Vital Signs Temp 98.5 F 01/06/24 15:07 Pulse 114 H 01/06/24 15:07 Resp 18 01/06/24 15:07 BP 115/84 01/06/24 15:07 Pulse Ox 93 01/06/24 15:07 O2 Del Method Room Air 01/06/24 15:07 O2 Flow Rate 1 01/06/24 12:20 BMI result Body Mass Index 30.2 Appearance: Alert.? Oriented X3.? cvs: rrr, [id number]. res: air entry fair, diminshed at bases.no rales or wheezing abd: no rebound or guarding ,nt , bs present. ext pulses present , no cyanosis . neuro: axo3 , nonfocal. DS: Data Data Completed and Pending Labs on day of discharge: Laboratory Results - last 24 hr 01/06/24 05:40 Hold Purple Top SEE NOTE Sodium 132 L Potassium 3.1 L Chloride 91 L Carbon Dioxide 31 H Anion Gap 13 BUN 12 Creatinine 0.66 Estim Creat Clear Calc 98.2 Estimated GFR > 60 Random Glucose 101 Calcium 8.3 L Magnesium 2.0 Imaging Chest x-ray: Radiologist's impression: ITS Impressions Abdomen/Pelvis CT 01/04/24 09:41 IMPRESSION: 1. CT findings most consistent with acute pancreatitis. Correlation with amylase and lipase recommended. 2. Hepatomegaly with diffusely decreased liver attenuation suggesting hepatic steatosis. Correlation with liver enzymes recommended. 3. Mild colonic diverticulosis without CT evidence to suggest active diverticulitis. 4. Mild circumferential fatty mucosal infiltration of the proximal and mid colon, nonspecific. Fleischner guidelines were followed. Electronically signed by: Vasquez Swenson MD 01/04/2024 11:06 AM EDT Discharge Plan Discharge Anticipated Discharge Date/Time: 01/06/24 15:23 Patient Disposition: Home, Self-Care Discharge Diagnosis: abd pain, acute pancreatitis , atelectasis Referrals: Edmund Arambula MD [Primary Care Provider] - 1 Week Discharge Medications: New docusate sodium 50 mg/5 mL Liquid 100 mg PO BID PRN (Reason: constipation) Qty: 60 0RF hydromorphone 2 mg Tablet 1 mg PO BID PRN (Reason: Pain, Moderate(Pain Scale 4-6)) Qty: 3 0RF Rx Instructions: Partial Fill upon patient request. bisacodyl [Gentle Laxative (bisacodyl)] 10 mg Suppository 10 mg NE BEDTIME PRN (Reason: constipation) Qty: 30 0RF Continued gabapentin 600 mg tablet 600 mg PO TID sucralfate 1 gram tablet 1 g PO QID ondansetron HCl 4 mg tablet 4 mg PO Q8H PRN (Reason: Nausea And Vomiting) omeprazole 40 mg capsule,delayed release(DR/EC) 40 mg PO BID amlodipine 10 mg tablet 10 mg PO DAILY multivitamin Tablet 1 tab PO DAILY Discharge Orders: Discharge Order (Routine); Ordered 01/06/24 Ordered By: Mati Lee Diet: Advance to usual diet Activity on Discharge: As tolerated Stand Alone Forms: Patient Portal Discharge page Print Language: Filipino Care Plan Goals: possible acute pancreatitis /alcohol use -seems improved with supportive care. strongly advised to abstain from alcohol. constipation: colace ,biscodyl atelactasis -seems improving ,hypoxia resolved ,walking sats 93% Health Concerns: as above. diludid 1 mg po bid prn for pain strongly advised to abstain from alcohol. if abd pain comes back or new symptoms -please get evaluated in nearest ED. Plan of Treatment: as above. Assessment: as above. Patient Instructions: Pancreatitis (DC)
== END 2024-01-06 16:07 | disposition home or self-care (01) | DRG 282 ==
LOC: HO.ED 11:15 → HO.EDOVER 12:53 → HO.S3 19:21
PROVIDERS: Admitting Provider Student in an Organized Health Care Education/Training Program; Emergency Provider Emergency Medicine; PCP Family Medicine; Visit Provider Internal Medicine
DX: K85.20 Alcohol induced acute pancreatitis without necrosis or infection (principal); F10.20 Alcohol dependence, uncomplicated; F17.210 Nicotine dependence, cigarettes, uncomplicated; M79.7 Fibromyalgia; Z71.6 Tobacco abuse counseling; J98.11 Atelectasis; K76.0 Fatty (change of) liver, not elsewhere classified; I10 Essential (primary) hypertension; Z79.899 Other long term (current) drug therapy
CPT/HCPCS: 36415; 74177; 80048; 80053; 80061; 80307; 81003; 83615; 83690; 83735; 84702; 85025; 94640; 96361; 96365; 96366; 96367; 96372; 96375; 96376; 99221; 99285; J0131; J1171; J1650; J2405; J3475; J7120; Q9967

== ENCOUNTER → 2024-01-04 12:45 | Outpatient (BNV) | payer OTHER, SELFPAY | PROVIDERS: Admitting Provider Student in an Organized Health Care Education/Training Program; Emergency Provider Emergency Medicine; PCP Family Medicine; Visit Provider Student in an Organized Health Care Education/Training Program | DX: K85.20 Alcohol induced acute pancreatitis without necrosis or infection (principal); R10.13 Epigastric pain | CPT/HCPCS: 99223; 99232; 99239; 99499 ==

== ENCOUNTER 2024-02-22 10:28 | Inpatient (IN) | payer OTHER, SELFPAY ==
--- NOTE | ~2024-02-22 | US_ITS ---
EXAMINATION: US ABDOMEN LIMITED CLINICAL INFORMATION: Epigastric/right upper quadrant pain. Elevated bilirubin.. COMPARISON: Correlated to CT dated January 04, 2024. TECHNIQUE: Real-time imaging of the right upper quadrant abdominal viscera using grayscale and color Doppler technique. FINDINGS: PANCREAS: Questionable hypoechoic peripancreatic abnormality. LIVER: Liver measures 15 cm. Increased echotexture. No solid or cystic lesion. No intrahepatic biliary ductal dilatation. Main portal vein is patent with normal hepatopedal flow direction. GALLBLADDER: There is a focal, 4 mm, isoechoic abnormality in the gallbladder neck without posterior shadowing. No pericholecystic fluid collection or gallbladder wall thickening. COMMON BILE DUCT: Common bile duct measures 3 mm. RIGHT KIDNEY: 11 cm. Normal echotexture. No solid or cystic lesion. Renal cortical thickness is normal. Normal flow on color Doppler interrogation of the renal hilum.. FREE FLUID: No fluid collection. US/US abdomen limited IMPRESSION: Probable edema/fluid in the lesser sac. Acute pancreatitis should be considered in the correct clinical settings. Hepatic steatosis. 4 mm intraluminal lesion, gallbladder. Consider polyp versus cholelithiasis. No hydronephrosis, right kidney. Electronically signed by: Devaughn Cedeño MD 02/22/2024 02:06 PM [facility]
--- NOTE | ~2024-02-22 | CT_ITS ---
EXAMINATION: CT ABDOMEN AND PELVIS WITH CONTRAST CLINICAL INFORMATION: [Abdominal pain. Questionable pancreatitis. COMPARISON: CT dated January 04, 2024. Correlated to recent Limited ultrasound dated February 22, 2024. TECHNIQUE: Multidetector volumetric images were obtained from the superior aspect of the liver through the pubic symphysis following administration 85 mL of Omnipaque 350 intravenous contrast. Sagittal and coronal reformatted images were obtained on the technologist's workstation. Oral contrast: No This CT examination was performed using dose optimization techniques as appropriate, variously including the following: *Automated exposure control *Adjustment of mA and/or kV according to patient size (this includes techniques or standardized protocols for targeted exams where dose is matched to indication/reason for exam; i.e. extremities or head) *Use of iterative reconstruction technique DLP: 494 mGy-cm FINDINGS: LUNG BASES: Subsegmental atelectasis. LIVER, GALLBLADDER, AND BILIARY TREE: Liver measures 16 cm. Decreased enhancement pattern. No focal mass. Portal vein, hepatic veins and intrahepatic portions of the IVC are patent. Gallbladder is contracted with intraluminal hyperdensity. No pericholecystic fluid collection or gallbladder wall thickening. No intrahepatic or extrahepatic biliary ductal dilatation. PANCREAS: Peripancreatic edema pattern. No fluid collection. Splenic vessels are patent. No vascular irregularity in the splenic artery. No focal pancreatic lesion or main pancreatic ductal dilatation. SPLEEN: 7.0 cm. No focal mass. ADRENAL GLANDS: No nodular lesion. KIDNEYS AND URETERS: Normal enhancement pattern without gross renal mass. No hydronephrosis. BLADDER: Fluid-filled. GASTROINTESTINAL TRACT: Abundant stool. Gas and fluid-filled mildly prominent small bowel loops. No intestinal obstruction pattern. No gross ascites. No pneumoperitoneum. No pneumatosis intestinalis. Appendix is normal. ABDOMINAL WALL: Small fat-containing umbilical hernia. LYMPH NODES: No gross lymphadenopathy, mesenteric or retroperitoneal. VASCULAR: No aneurysm or dissection, abdominal aorta. PELVIC VISCERA: Absent uterus. OSSEOUS STRUCTURES: Multilevel thoracolumbar spondylosis. Grade 1 anterolisthesis L4-5 on a degenerative basis. No lytic or blastic lesions. No acute fracture. CT/CT abdomen pelvis w IV con IMPRESSION: Acute pancreatitis without gross complication. Hepatic steatosis. Cholelithiasis. Small fat-containing umbilical hernia. Fleischner guidelines were followed. Electronically signed by: Devaughn Cedeño MD 02/22/2024 03:15 PM EST RP
[2024-02-22 10:47] VITALS: BP 143/102; PULSE 101; RESP 18; TEMP 36.8; O2SAT 99; BMI 27.0
[2024-02-22 11:14] LABS: MANUAL DIFF FLAG NO
[2024-02-22 11:17] LABS: Basophils Percent Auto 0.3 % (0-2); Eosinophils Absolute Auto 0.1 X10*3/uL (0.0-0.4); Eosinophils Percent Auto 1.8 % (0-4); Hematocrit 38.9 % (37.0-47.0); Hemoglobin 14.1 g/dl (12.0-16.0); Imm Gran Abs Auto 0.02 X10*3/uL (0.00-0.03); Imm Gran Pct Auto 0.3 % (0.0-0.4); Lymphocytes Absolute Auto 2.3 X10*3/uL (1.2-4.9); Mean Corpuscular HGB Conc 36.2 g/dl (31.0-35.0); Mean Corpuscular Hemoglobin 34.1 pg (27.0-33.0); Monocytes Absolute Auto 0.5 X10*3/uL (0.1-1.2); Monocytes Percent Auto 7.7 % (2-11); Neutrophils Absolute Auto 3.8 x10*3/uL (2.0-8.3); Neutrophils Percent Auto 55.9 % (45-73); Platelet Count 185 X10*3/uL (160-400); Red Blood Count 4.14 X10*6/uL (4.20-5.50); Red Cell Distribution Width 13.7 % (11.0-16.0); White Blood Count 6.7 X10*3/uL (4.8-10.8)
[2024-02-22 11:18] LABS: UPreg QC Valid YES; Urine Pregnancy NEGATIVE (NEGATIVE)
[2024-02-22 11:19] LABS: Appearance Urine Clear; Color Urine Dark Yellow; Glucose Urine UA Negative (Negative); Leukocyte Esterase Urine Trace (Negative); Nitrite Urine Negative (Negative); PH 6.5 (5.0-9.0); Specific Gravity - Urine >= 1.030 (1.005-1.025); UMIC TRIGGER UACC YES; Urine Blood Negative (Negative); Urine Ketones 15 mg/dL (Negative); Urine Protein 30 (1+) mg/dL (Neg-Trace)
[2024-02-22 11:41] LABS: Alanine Aminotransferase 48 U/L (0-31); Albumin Level 4.2 g/dL (3.5-5.0); Alkaline Phosphatase 106 U/L (39-117); Anion Gap 17 (12-20); Aspartate Amino Transferase 56 U/L (5-31); Bilirubin Direct 0.8 mg/dL (0.0-0.5); Bilirubin Total 1.7 mg/dL (0.0-1.0); Blood Urea Nitrogen 6 mg/dL (9-16); Calcium 9.1 mg/dL (8.4-10.2); Carbon Dioxide 27 mmol/L (22-29); Chloride 97 mmol/L (96-108); Creatinine Clr Calc Pharmacy 101.2; Estimated Glomerular Filt Rate > 60; Glucose Random 95 mg/dL (60-115); Lipase 137 U/L (8-78); Potassium 2.8 mmol/L (3.3-5.1); Sodium 138 mmol/L (135-145); Total Protein 8.2 g/dL (6.5-8.0)
[2024-02-22 11:44] LABS: Bacteria Urine 1+ (None Seen); Hyaline Casts Urine 0-2 /LPF (0-2); RBC Urine 0-2 /HPF (0-2); WBC Urine 0-5 /HPF (0-5)
[2024-02-22 12:30] LABS: Magnesium 0.9 mg/dL (1.6-2.6)
--- NOTE | 2024-02-22 12:53 | ED.ABDPAIN ---
HPI - Abdominal Pain General Chief Complaint: Abdominal Pain Stated Complaint: Diverticulitis? Time Seen by Provider: 02/22/24 12:46 Source: patient, RN notes reviewed and old records reviewed Mode of arrival: ambulatory History of Present Illness ED Provider: Clara Ahmadi PA-C HPI narrative: 53-year-old female with a past medical history HTN, diverticulitis, GERD, mood disorder, presenting to the ED complaining of upper abdominal pain, nausea, vomiting since Thanksgi, and constipation w/ brbpr x 2 days. Patient was recently admitted to our facility for acute pancreatitis discharged on 01/06/24 suspected secondary to alcohol use. Denies fever, chills, dysuria/hematuria, lightheadedness/dizziness, anticoagulation use. Denies current EtOH use however does admit to celebrating the holiday with ETOH. MD elicited complaint: abdominal pain Related Data Home Medications ?Medication ?Instructions ?Recorded ?Confirmed amlodipine 10 mg tablet 10 mg PO DAILY 01/04/24 02/22/24 gabapentin 600 mg tablet 600 mg PO TID 01/04/24 02/22/24 omeprazole 40 mg capsule,delayed 40 mg PO BID@0630,1630 01/04/24 02/22/24 release sucralfate 1 gram tablet 1 g PO QID PRN Acid Reflux 01/04/24 02/22/24 ascorbic acid (vitamin C) 500 mg 500 mg PO DAILY 02/22/24 02/22/24 tablet (Vitamin C) cholecalciferol (vitamin D3) 25 25 mcg PO DAILY 02/22/24 02/22/24 mcg (1,000 unit) capsule (Vitamin D3) citalopram 20 mg tablet 20 mg PO DAILY 02/22/24 02/22/24 cyanocobalamin (vitamin B-12) 1,000 mcg PO DAILY 02/22/24 02/22/24 1,000 mcg tablet (Vitamin B-12) Allergies Allergy/AdvReac Type Severity Reaction Status Date / Time No Known Allergies Allergy Verified 02/22/24 10:52 Review of Systems Review of Systems Yes all other systems are reviewed and are negative Constitutional: Reports as per [facility] Past Medical History Attestation statement: The following information was validated with the patient. Source: old records reviewed Medical History Pancreatitis Fibromyalgia HTN (hypertension) Social History Social History Household Members: Spouse Housing: House Do you presently have visiting nurse or other home services: No Alcohol intake: current Alcohol intake frequency: holidays/special occasions only Patient Tobacco Use Status: Current everyday Tobacco user Tobacco use type: Cigarette Cigarette Packs Per Day: 1 Cigarettes Per Day: 20.0 Smoked in Last 30 Days: Yes e-Cigarette/Vaping Use: Never Used Patient Interested in Nicotine Replacement: No Patient Given Instructions on How to Stop Smoking: No Second Hand Smoke Exposure: No Use of substances other than those prescribed or required for medical reasons: No Have you been hit, kicked, punched, or otherwise hurt by someone within the past year? If so, by whom?: No Do you feel safe in your current relationship?: Yes Is there a partner from a previous relationship who is making you feel unsafe now?: No Are you made to feel afraid or neglected: No Advance Directives: No Advance Directives Information Provided: Yes Do you have a plan to hurt others: No Plan Recently lost weight without trying: Yes How much weight loss: 2-13 pounds Eating poorly because of decreased appetite: Yes Nutrition screen score: 4 Nutrition Risks: Poor intake 0-25% >4 days Patient : No : No Poor oral hygiene: No service: No Physical Exam ED Vital Signs: Vital Signs - 24 hr 02/22/24 10:47 02/22/24 14:10 02/22/24 15:21 Temperature 98.3 F 98.2 F Pulse Rate 101 H 99 Respiratory Rate 18 16 20 Blood Pressure 143/102 H 158/109 H Pulse Oximetry 99 97 Oxygen Delivery Method Room Air Room Air BMI result Body Mass Index 27.0 Const General: cooperative, healthy appearing and no acute distress Orientation/consciousness: patient oriented x3 Limitations: no limitations HENMT Head: Yes normal to inspection and Yes atraumatic Ears: hearing grossly normal bilaterally General nose exam: Normal external nose present Face and sinus: Yes normal facial exam Eyes General: appearance normal, both eyes and all related structures EOM: EOMs intact bilaterally Neck Neck: Yes normal visual inspection and Yes no meningeal signs Resp Effort & Inspection: normal respiratory effort and no respiratory distress Auscultation: clear to auscultation bilaterally Cardio Rate: regular rate Heart sounds: S1 normal heart sound present and S2 normal heart sound present GI Inspection: Yes normal to inspection Palpation (GI): Soft to palpation, Tenderness to palpation present (GI) (Upper abdomen) with no rebound tenderness, no guarding and not rigid General: Yes no CVA tenderness Back/Spine/Pelvis Back: no CVA tenderness Skin Rashes: no rashes Wounds: no wounds Neuro General: patient oriented x3, tone normal and no meningeal signs Cranial nerves: Yes CN's II-XII intact bilaterally Gait exam (Neuro): Normal gait present Extrem General: Yes normal to inspection Course Course Course Narrative: -1332--no leukocytosis. H/H stable. Potassium low at 2.8 > p.o. repletion ordered. Magnesium low at 0.9 >2 g IV repletion ordered -acute on chronic transaminitis. Lipase elevated to 137 US abdomen limited IMPRESSION: Probable edema/fluid in the lesser sac. Acute pancreatitis should be considered in the correct clinical settings. Hepatic steatosis. 4 mm intraluminal lesion, gallbladder. Consider polyp versus cholelithiasis. No hydronephrosis, right kidney. 1530--CT abdomen pelvis w IV con IMPRESSION: Acute pancreatitis without gross complication. Hepatic steatosis. Cholelithiasis. Small fat-containing umbilical hernia. Fleischner guidelines were followed. > plan to admit for further management, case discussed with hospitalist Dr. Lewis Medical Decision Making Medical Decision Making MDM Narrative: 53-year-old female with a past medical history HTN, diverticulitis, GERD, mood disorder, presenting to the ED complaining of upper abdominal pain, nausea, vomiting since Thanksgiving, and constipation w/ brbpr x 2 days. On exam hypertensive, tachycardic likely from pain, abdomen soft with upper tenderness to palpation, no rebound or guarding. Concern for pancreatitis vs cholecystitis/lithiasis vs colitis/diverticulitis vs hemorrhoidal or GI bleed. Rule out anemia. Lower suspicion for appendicitis, UTI, ovarian pathology. Low suspicion for severe sepsis at this time. Plan: Labs, UA, ultrasound ordered in triage, IVF, pain control Please refer to course for remaining clinical decision making, interpretation of labs/imaging results, and discussions with consultants and/or family members. Differential Diagnosis Differential Diagnoses: The differential diagnosis associated with the presentation includes As above Admission/Observation Consideration of admission/observation: Escalation of care including admission/observation considered Consult Healthcare Provider Management of the patient was discussed with: Hospitalist Lab Data MDM Lab Attestation statement: I reviewed the patient's lab results. 02/22/24 11:09 02/22/24 11:09 Labs: Lab Results 02/22/24 02/22/24 Range/Units 11:09 15:26 WBC 6.7 (4.8-10.8) X10*3/uL RBC 4.14 L (4.20-5.50) X10*6/uL Hgb 14.1 (12.0-16.0) g/dl Hct 38.9 (37.0-47.0) % MCV 94.0 (80.0-98.0) fL MCH 34.1 H (27.0-33.0) pg MCHC 36.2 H (31.0-35.0) g/dl RDW 13.7 (11.0-16.0) % Plt Count 185 (160-400) X10*3/uL MPV 11.0 (9.4-12.3) fL Immature Gran % (Auto) 0.3 (0.0-0.4) % Neut % (Auto) 55.9 (45-73) % Lymph % (Auto) 34.0 (20-40) % [place] % (Auto) 7.7 (2-11) % Eos % (Auto) 1.8 (0-4) % Baso % (Auto) 0.3 (0-2) % Lymph # (Auto) 2.3 (1.2-4.9) X10*3/uL [place] # (Auto) 0.5 (0.1-1.2) X10*3/uL Eos # (Auto) 0.1 (0.0-0.4) X10*3/uL Baso # (Auto) 0.0 (0.0-0.2) X10*3/uL Abs Immat Gran (auto) 0.02 (0.00-0.03) X10*3/uL Absolute Neuts (auto) 3.8 (2.0-8.3) x10*3/uL Absolute Nucleated RBC 0.000 (0.0-0.012) X10*3/uL Nucleated RBC % (auto) 0.0 (0.0-0.2) /100WBC Sodium 138 (135-145) mmol/L Potassium 2.8 L* (3.3-5.1) mmol/L Chloride 97 (96-108) mmol/L Carbon Dioxide 27 (22-29) mmol/L Anion Gap 17 (12-20) BUN 6 L (9-16) mg/dL Creatinine 0.63 (0.5-1.4) mg/dL Estim Creat Clear Calc 101.2 Estimated GFR > 60 Random Glucose 95 (60-115) mg/dL Calcium 9.1 D (8.4-10.2) mg/dL Magnesium 0.9 L* (1.6-2.6) mg/dL Total Bilirubin 1.7 H (0.0-1.0) mg/dL Direct Bilirubin 0.8 H (0.0-0.5) mg/dL AST 56 H (5-31) U/L ALT 48 H (0-31) U/L Alkaline Phosphatase 106 (39-117) U/L Total Protein 8.2 H (6.5-8.0) g/dL Albumin 4.2 (3.5-5.0) g/dL Lipase 137 H (8-78) U/L Urine Color Dark Yellow Urine Appearance Clear Urine pH 6.5 (5.0-9.0) Ur Specific [place] >= 1.030 H (1.005-1.025) Urine Protein 30 (1+) H (Neg-Trace) mg/dL Urine Glucose (UA) Negative (Negative) mg/dL Urine Ketones 15 (Negative) mg/dL Urine Blood Negative (Negative) Urine Nitrite Negative (Negative) Ur Leukocyte Esterase Trace H (Negative) Urine RBC 0-2 (0-2) /HPF Urine WBC 0-5 (0-5) /HPF Ur Squamous Epith Cells 6-10 (0-2) /HPF Urine Bacteria 1+ (None Seen) Hyaline Casts 0-2 (0-2) /LPF Urine Test NEGATIVE (NEGATIVE) Stool Occult Blood NEGATIVE (NEGATIVE) Ethyl Alcohol < 10 mg/dL Independent Interpretation I performed an independent interpretation of an: EKG and Ultrasound Radiology Impression Discussion of test interpretation with radiology: I have reviewed the radiologist's reading. External Record Review External record reviewed: Inpatient record, Office record, Outpatient record, Prior outpatient labs, Prior outpatient radiology, Primary care record and Outside ED record Tests considered The following testing was considered but not selected: As above Prescription Management I considered prescription management with: Pain Medication Chronic Conditions Patient?s care impacted by: Other Social Determinants Patient?s care significantly limited by Social Determinants of Health including: Inadequate housing, Low income, Alcoholism and drug addiction in family, Problems related to primary support group and Other Social Determinant of Health Medications Administered Generic Name Dose Route Start Last Admin Trade Name Freq PRN Reason Stop Dose Admin Hydromorphone HCl 1 mg 02/22/24 15:55 02/22/24 17:48 Hydromorphone Hcl 1 Mg/Ml Syringe IVPUSH 1 mg Q3H PRN Administration Pain, Severe (Pain Scale 7-10) Protocol Lactated Ringer's 1,000 mls @ 150 mls/hr 02/22/24 16:00 02/22/24 17:11 Lr IVCONT 150 mls/hr .Q6H40M BRIANDA Administration Discontinued Medications Generic Name Dose Route Start Last Admin Trade Name Freq PRN Reason Stop Dose Admin Magnesium Sulfate 2 gm in 50 mls @ 25 mls/hr 02/22/24 12:59 02/22/24 16:41 Magnesium Sulfate/H2o IV 02/22/24 14:58 Infused ONCE ONE Infusion Sodium Chloride 1,000 mls @ 999 mls/hr 02/22/24 13:15 02/22/24 16:42 Ns IV 02/22/24 14:15 Infused .Q1H1M BRIANDA Infusion Iohexol 85 ml 02/22/24 14:41 02/22/24 14:42 Iohexol 350 Mg/Ml 100 Ml Infus..Btl IV 02/22/24 14:42 85 ml ONCE ONE Administration Morphine Sulfate 2 mg 02/22/24 13:25 02/22/24 14:10 Morphine Sulfate 2 Mg/Ml Cartridge IVPUSH 02/22/24 13:26 2 mg ONCE ONE Administration Protocol Morphine Sulfate 4 mg 02/22/24 15:05 02/22/24 15:31 Morphine Sulfate 4 Mg/Ml Cartridge IVPUSH 02/22/24 15:06 4 mg ONCE ONE Administration Protocol Ondansetron HCl 4 mg 02/22/24 13:25 02/22/24 14:10 Ondansetron Hcl 4 Mg/2 Ml Vial IVPUSH 02/22/24 13:26 4 mg ONCE ONE Administration Potassium Chloride 60 meq 02/22/24 12:59 02/22/24 14:19 Potassium Chloride Packet 20 Meq Packet PO 02/22/24 13:00 60 meq ONCE ONE Administration Potassium Chloride 40 meq 02/22/24 15:36 02/22/24 17:12 Potassium Chloride Packet 20 Meq Packet PO 02/22/24 15:37 40 meq ONCE ONE Administration Critical Care Time Critical Care Time Critical Care Time: Yes Total Critical Care Time: 45 Attestation: I have personally provided critical care time exclusive of time spent on separately billable procedures. Time includes review of lab data, radiology results, discussion with consultants, and monitoring for potential decompensation. Intervention performed as documented. Discharge Plan Discharge Clinical Impression: Acute pancreatitis, Hypomagnesemia, Acute hypokalemia Patient Disposition: Admitted As Inpatient Interventions: Admission Worksheet (ED) Last Done: 02/22/24 17:40 Discharge Date/Time: 02/22/24 18:41
--- NOTE | 2024-02-22 13:31 | ECG_ITS ---
Test Reason : upper abd pain Blood Pressure : / mmHG Vent. Rate : 081 BPM Atrial Rate : 081 BPM P-R Int : 168 ms QRS Dur : 084 ms QT Int : 426 ms P-R-T Axes : 030 033 049 degrees QTc Int : 494 ms Normal sinus rhythm ST & T wave abnormality, consider anterior ischemia Prolonged QT Abnormal ECG No previous ECGs available Referred By: Clara Ahmadi Electronically Signed By:Lance Almaguer
[2024-02-22 13:39] LABS: Ethanol < 10 mg/dL
[2024-02-22 14:10] VITALS: RESP 16
[2024-02-22] MEDS: ondansetron HCL 4 MG/2 ML VIAL IVPUSH (14:10)
[2024-02-22] MEDS: Morphine Sulfate 2 MG/ML CARTRIDGE IVPUSH (14:10)
[2024-02-22] MEDS: 0.9 % Sodium Chloride 1,000 ML 999 ML IV (14:11)
[2024-02-22] MEDS: Magnesium Sulfate/H2O 2 GM/50 ML PIGGYBACK IV (14:13)
[2024-02-22] MEDS: Potassium Chloride Packet 20 MEQ PACKET 60 MEQ PO (14:19)
[2024-02-22] MEDS: iohexoL 350 MG/ML 100 ML INFUS..BTL 85 ML IV (14:42)
[2024-02-22 15:21] VITALS: BP 158/109; PULSE 99; RESP 20; TEMP 36.8; O2SAT 97
[2024-02-22] MEDS: Morphine Sulfate 4 MG/ML CARTRIDGE IVPUSH (15:31)
[2024-02-22 15:34] LABS: OBS Int Ctl Valid YES; OBS1 NEGATIVE (NEGATIVE)
--- NOTE | 2024-02-22 15:36 | PC.NURSE ---
Care of Pt assumed at 3p; report received from MANDA Ramos. Pt in with provider for rectal eval. Pt medicated for pain per MAR and warm blanket provided. Pt is A&Ox3 NAD noted. Pt is currently face timing with spouse. Awaiting lab results and room assignment.
--- NOTE | 2024-02-22 15:43 | PC.NURSE ---
Attending at bedside.
--- NOTE | 2024-02-22 16:01 | PM.IMHP ---
History of Present Illness Date of Service: 02/22/24 Chief Complaint: abd pain, brbpr 53F PMH AFLD and NAFLD, b12 deficiency, fibrymalgia, htn, gerd, pancreatitis, mood disorder, presented with abdominal pain and BRBPR. Patient had been admitted to [facility] in December of this year for alcoholic pancreatitis. She has been trying to cut back on alcohol consumption but did have several drinks over the and since then has been having epigastric abdominal pain radiating to the back, lack of appetite, nausea vomiting, also noted bright red blood per rectum. In ED CT abdomen consistent with acute uncomplicated pancreatitis and hepatic steatosis. Labs with severe hypomagnesemia and hypokalemia. Review of Systems Review of Systems: Yes all other systems are reviewed and are negative [facility] Medical History Pancreatitis Fibromyalgia HTN (hypertension) Social History Household Members: Spouse Housing: House Do you presently have visiting nurse or other home services: No Alcohol intake: current Alcohol intake frequency: holidays/special occasions only Patient Tobacco Use Status: Current everyday Tobacco user Tobacco use type: Cigarette Smoked in Last 30 Days: No e-Cigarette/Vaping Use: Never Used Use of substances other than those prescribed or required for medical reasons: No Advance Directives: No Advance Directives Information Provided: Yes Do you have a plan to hurt others: No Plan service: No Meds Allergies Allergy/AdvReac Type Severity Reaction Status Date / Time No Known Allergies Allergy Verified 02/22/24 10:52 Active Medications: Current Medications Enoxaparin Sodium (Enoxaparin Sodium 40 Mg/0.4 Ml Syringe) 40 mg SUBCUT Q24H BRIANDA Hydromorphone HCl (Hydromorphone Hcl 1 Mg/Ml Syringe) 1 mg IVPUSH Q3H PRN; Protocol PRN Reason: Pain, Severe (Pain Scale 7-10) Lactated Ringer's (Lr) 1,000 mls @ 150 mls/hr IVCONT .Q6H40M [facility] Home Medications ?Medication ?Instructions ?Recorded ?Confirmed ?Last Taken ?Type amlodipine 10 mg tablet 10 mg PO DAILY 01/04/24 02/22/24 02/21/24 History gabapentin 600 mg tablet 600 mg PO TID 01/04/24 02/22/24 02/21/24 History omeprazole 40 mg capsule,delayed 40 mg PO BID@0630,1630 01/04/24 02/22/24 02/21/24 History release sucralfate 1 gram tablet 1 g PO QID PRN Acid Reflux 01/04/24 02/22/24 02/21/24 History ascorbic acid (vitamin C) 500 mg 500 mg PO DAILY 02/22/24 02/22/24 02/21/24 History tablet (Vitamin C) cholecalciferol (vitamin D3) 25 25 mcg PO DAILY 02/22/24 02/22/24 02/21/24 History mcg (1,000 unit) capsule (Vitamin D3) citalopram 20 mg tablet 20 mg PO DAILY 02/22/24 02/22/24 Unknown History cyanocobalamin (vitamin B-12) 1,000 mcg PO DAILY 02/22/24 02/22/24 02/21/24 History 1,000 mcg tablet (Vitamin B-12) Physical Exam Vital Signs and Narrative: Vital Signs: Last Vital Signs Temp 98.2 F 02/22/24 15:21 Pulse 99 02/22/24 15:21 Resp 20 02/22/24 15:21 BP 158/109 H 02/22/24 15:21 Pulse Ox 97 02/22/24 15:21 O2 Del Method Room Air 02/22/24 15:21 BMI result Body Mass Index 27.0 General: AO X 3, no acute distress Resp: CTA bilateral, no accessory muscles used CVS: S1,S2,RRR GI: soft, epigatric tender, non distended Neuro: motor grossly intact, alert Psych: appropriate affect, appropriate insight Results Labs 02/22/24 11:09 02/22/24 11:09 Labs: Laboratory Results - last 24 hr 02/22/24 02/22/24 11:09 15:26 MCV 94.0 MCH 34.1 H MCHC 36.2 H RDW 13.7 Plt Count 185 MPV 11.0 Immature Gran % (Auto) 0.3 Neut % (Auto) 55.9 Lymph % (Auto) 34.0 [place] % (Auto) 7.7 Eos % (Auto) 1.8 Baso % (Auto) 0.3 Lymph # (Auto) 2.3 [place] # (Auto) 0.5 Eos # (Auto) 0.1 Baso # (Auto) 0.0 Abs Immat Gran (auto) 0.02 Absolute Neuts (auto) 3.8 Absolute Nucleated RBC 0.000 Nucleated RBC % (auto) 0.0 Anion Gap 17 Estim Creat Clear Calc 101.2 Estimated GFR > 60 Random Glucose 95 Calcium 9.1 D Magnesium 0.9 L* Total Bilirubin 1.7 H Direct Bilirubin 0.8 H AST 56 H ALT 48 H Alkaline Phosphatase 106 Total Protein 8.2 H Albumin 4.2 Lipase 137 H Urine Color Dark Yellow Urine Appearance Clear Urine pH 6.5 Ur Specific [place] >= 1.030 H Urine Protein 30 (1+) H Urine Glucose (UA) Negative Urine Ketones 15 Urine Blood Negative Urine Nitrite Negative Ur Leukocyte Esterase Trace H Urine RBC 0-2 Urine WBC 0-5 Ur Squamous Epith Cells 6-10 Urine Bacteria 1+ Hyaline Casts 0-2 Urine Test NEGATIVE Stool Occult Blood NEGATIVE Ethyl Alcohol < 10 Imaging Radiologist's Impressions: Impressions Abdomen Ultrasound 02/22/24 12:51 IMPRESSION: Probable edema/fluid in the lesser sac. Acute pancreatitis should be considered in the correct clinical settings. Hepatic steatosis. 4 mm intraluminal lesion, gallbladder. Consider polyp versus cholelithiasis. No hydronephrosis, right kidney. Electronically signed by: Devaughn Cedeño MD 02/22/2024 02:06 PM [employer] RP Abdomen/Pelvis CT 02/22/24 14:35 IMPRESSION: Acute pancreatitis without gross complication. Hepatic steatosis. Cholelithiasis. Small fat-containing umbilical hernia. Fleischner guidelines were followed. Electronically signed by: Devaughn Cedeño MD 02/22/2024 03:15 PM [employer] RP Assessment and Plan (1) Hypomagnesemia: Status: Acute Plan 53F PMH AFLD and NAFLD, b12 deficiency, fibrymalgia, htn, gerd, pancreatitis, mood disorder, presented with abdominal pain and BRBPR Acute pancreatitis Likely due to alcohol IV Dilaudid, aggressive hydration, advanced to low-fat diet Alcohol dependence with alcoholic fatty liver Monitor CIWA Alcohol cessation Acute hypomagnesemia and hypokalemia Likely related to alcohol, poor intake, PPI Replace and monitor Holding PPI Hypertension amlodipine Fibromyalgia gabapentin gerd hold ppi contnue carafate DVT prophylaxis with Lovenox Full Code Patient with severe electrolyte abnormalities requiring replacement and close monitoring therefore expected require at least 2 midnights inpatient Quality Stroke Does the patient have a stroke diagnosis?: No VTE Prior VTE?: No VTE Risk Level:: Medical - moderate - high VTE Device Contraindication: Treatment Not Indicated VTE Drug Contraindication: N/A - Med Ordered
[2024-02-22] MEDS: Lactated Ringers 1,000 ML 150 ML IVCONT (17:11)
[2024-02-22] MEDS: Potassium Chloride Packet 20 MEQ PACKET 40 MEQ PO (17:12)
[2024-02-22] MEDS: HYDROmorphone HCl 1 MG/ML SYRINGE IVPUSH ×3 (17:48→23:53)
--- NOTE | 2024-02-22 18:36 | PHA.MEDREC ---
Addendum entered by Gael Almanzar RPh 02/22/24 18:54: Reviewed by formerly [facility]. Original Note: Pharmacy Consult ? Medication Reconciliation Pharmacy has completed the medication reconciliation. Spoke to patient to confirm med list .
[2024-02-22 18:56] VITALS: BP 121/86; PULSE 90; RESP 20; TEMP 36.8; O2SAT 97
[2024-02-22 19:55] VITALS: BP 131/93; PULSE 83; RESP 18; TEMP 36.5; O2SAT 94
[2024-02-22] MEDS: Gabapentin 600 MG TABLET PO (20:53)
[2024-02-22] MEDS: Prochlorperazine Edisylate 10 MG/2 ML VIAL 5 MG IVPUSH (21:35)
[2024-02-23] VITALS: BP 124/81; PULSE 87; RESP 20; TEMP 36.5; O2SAT 96
[2024-02-23] MEDS: diphenhydrAMINE HCL 25 MG CAPSULE 50 MG PO (01:37)
[2024-02-23 03:17] VITALS: RESP 18
[2024-02-23] MEDS: HYDROmorphone HCl 1 MG/ML SYRINGE IVPUSH ×3 (03:17→09:40)
[2024-02-23] MEDS: Lactated Ringers 1,000 ML 150 ML IVCONT (03:17)
[2024-02-23 04:00] VITALS: BP 117/87; PULSE 87; RESP 18; TEMP 36.7; O2SAT 96
[2024-02-23 07:07] LABS: Hematocrit 34.3 % (37.0-47.0); Hemoglobin 12.2 g/dl (12.0-16.0); Mean Corpuscular HGB Conc 35.6 g/dl (31.0-35.0); Mean Corpuscular Hemoglobin 33.4 pg (27.0-33.0); Mean Platelet Volume 11.7 fL (9.4-12.3); Platelet Count 170 X10*3/uL (160-400); Red Blood Count 3.65 X10*6/uL (4.20-5.50); Red Cell Distribution Width 13.5 % (11.0-16.0); White Blood Count 5.3 X10*3/uL (4.8-10.8)
[2024-02-23 07:17] VITALS: BP 123/87; PULSE 76; RESP 18; TEMP 36.8; O2SAT 94
[2024-02-23 07:42] LABS: Anion Gap 12 (12-20); Blood Urea Nitrogen 5 mg/dL (9-16); Calcium 8.7 mg/dL (8.4-10.2); Carbon Dioxide 25 mmol/L (22-29); Chloride 100 mmol/L (96-108); Estimated Glomerular Filt Rate > 60; Glucose Fasting 107 mg/dL (60-99); Magnesium 1.4 mg/dL (1.6-2.6); Potassium 3.2 mmol/L (3.3-5.1); Sodium 134 mmol/L (135-145)
[2024-02-23] MEDS: amLODIPine Besylate 10 MG TABLET PO (07:54)
[2024-02-23] MEDS: Escitalopram Oxalate 10 MG TABLET PO (07:54)
[2024-02-23] MEDS: Magnesium Oxide 400 MG TABLET 800 MG PO (07:54)
[2024-02-23] MEDS: Gabapentin 600 MG TABLET PO (07:54)
[2024-02-23] MEDS: Cholecalciferol (Vitamin D3) 25 MCG TABLET PO (07:54)
[2024-02-23] MEDS: Cyanocobalamin (Vitamin B-12) 1,000 MCG TABLET 1000 MCG PO (07:55)
[2024-02-23] MEDS: Ascorbic Acid 500 MG TABLET PO (07:55)
[2024-02-23] MEDS: diphenhydrAMINE HCL 50 MG/ML VIAL 25 MG IVPUSH (08:02)
--- NOTE | 2024-02-23 09:01 | MHC.CM.PN ---
Pt self-care, lives at home with her who will transport her home at discharge. Educated provided on HCP, she declined to make one at this time, states she will think about it. PCP: Dr. Edmund Arambula
[2024-02-23 09:40] VITALS: RESP 18
[2024-02-23] MEDS: Potassium Chloride ER 20 MEQ TAB.ER.PRT 40 MEQ PO (09:40)
[2024-02-23] MEDS: Sucralfate 1 GM TABLET PO (09:41)
--- NOTE | 2024-02-23 10:40 | P.DS_ITS ---
DS: Providers Provider Date of Service: 02/23/24 Date of admission: 02/22/24 15:56 Date of discharge: 02/23/24 Primary care physician: Edmund Arambula MD DS: Diagnosis Discharge Diagnosis (1) Hypomagnesemia: Status: Acute DS: Summary Hospital Course Hospital Course: from initial hpi: 53F PMH AFLD and NAFLD, b12 deficiency, fibrymalgia, htn, gerd, pancreatitis, mood disorder, presented with abdominal pain and BRBPR. Patient had been admitted to [facility] [place] in December of this year for alcoholic pancreatitis. She has been trying to cut back on alcohol consumption but did have several drinks over the and since then has been having epigastric abdominal pain radiating to the back, lack of appetite, nausea vomiting, also noted bright red blood per rectum. In ED CT abdomen consistent with acute uncomplicated pancreatitis and hepatic steatosis. Labs with severe hypomagnesemia and hypokalemia. hospital course: Patient was admitted for acute alcoholic pancreatitis. Was treated with aggressive hydration, IV pain meds and advanced to solid low-fat diet which patient tolerated. For alcohol dependence with alcoholic fatty liver patient did not demonstrate any signs of withdrawal, alcohol cessation is recommended. For acute hypomagnesemia and hypokalemia patient received replacement. This is likely related to alcohol, poor intake and PPI. Her PPI will be changed to Pepcid. For hypertension was continued on amlodipine. For fibromyalgia continue on gabapentin. Patient is feeling better and tolerating p.o. will be discharged home. Time Attestation Discharge Coordination Time (in mins): 34 Quality: Safe Use of Opioids Does Pt have an Active Cancer Diagnosis on the Problem List?: No Quality: Stroke Does the patient have a stroke diagnosis?: No Physical Exam Vital Signs: Vital Signs: Last Vital Signs Temp 98.2 F 02/23/24 07:17 Pulse 76 02/23/24 07:17 Resp 18 02/23/24 09:40 BP 123/87 02/23/24 07:17 Pulse Ox 94 02/23/24 07:17 O2 Del Method Room Air 02/23/24 07:17 BMI result Body Mass Index 27.0 General: AO X 3, no acute distress Resp: CTA bilateral, no accessory muscles used CVS: S1,S2,RRR GI: soft, non tender, non distended Neuro: motor grossly intact, alert Psych: appropriate affect, appropriate insight DS: Data Data Completed and Pending Labs on day of discharge: Laboratory Results - last 24 hr 02/22/24 02/22/24 02/23/24 11:09 15:26 06:21 WBC 6.7 5.3 RBC 4.14 L 3.65 L Hgb 14.1 12.2 Hct 38.9 34.3 L MCV 94.0 94.0 MCH 34.1 H 33.4 H MCHC 36.2 H 35.6 H RDW 13.7 13.5 Plt Count 185 170 MPV 11.0 11.7 Immature Gran % (Auto) 0.3 Neut % (Auto) 55.9 Lymph % (Auto) 34.0 [place] % (Auto) 7.7 Eos % (Auto) 1.8 Baso % (Auto) 0.3 Lymph # (Auto) 2.3 [place] # (Auto) 0.5 Eos # (Auto) 0.1 Baso # (Auto) 0.0 Abs Immat Gran (auto) 0.02 Absolute Neuts (auto) 3.8 Absolute Nucleated RBC 0.000 0.000 Nucleated RBC % (auto) 0.0 0.0 Sodium 138 134 L Potassium 2.8 L* 3.2 L Chloride 97 100 Carbon Dioxide 27 25 Anion Gap 17 12 BUN 6 L 5 L Creatinine 0.63 0.54 Estim Creat Clear Calc 101.2 118.0 Estimated GFR > 60 > 60 Random Glucose 95 Fasting Glucose 107 H Calcium 9.1 D 8.7 Magnesium 0.9 L* 1.4 L* Total Bilirubin 1.7 H Direct Bilirubin 0.8 H AST 56 H ALT 48 H Alkaline Phosphatase 106 Total Protein 8.2 H Albumin 4.2 Lipase 137 H Urine Color Dark Yellow Urine Appearance Clear Urine pH 6.5 Ur Specific [place] >= 1.030 H Urine Protein 30 (1+) H Urine Glucose (UA) Negative Urine Ketones 15 Urine Blood Negative Urine Nitrite Negative Ur Leukocyte Esterase Trace H Urine RBC 0-2 Urine WBC 0-5 Ur Squamous Epith Cells 6-10 Urine Bacteria 1+ Hyaline Casts 0-2 Urine Test NEGATIVE Stool Occult Blood NEGATIVE Ethyl Alcohol < 10 Discharge Plan Discharge Anticipated Discharge Date/Time: 02/23/24 10:35 Patient Disposition: Home, Self-Care Discharge Diagnosis: Pancreatitis, hypokalemia, hypomagnesemia Referrals: Edmund Arambula MD [Primary Care Provider] - 1 Week Discharge Medications: New famotidine [Pepcid] 20 mg tablet 20 mg PO DAILY Qty: 90 0RF oxycodone 5 mg tablet 5 mg PO Q6H PRN (Reason: pain (scale score 7-10)) Qty: 7 0RF Rx Instructions: Partial Fill upon patient request. Continued gabapentin 600 mg tablet 600 mg PO TID sucralfate 1 gram tablet 1 g PO QID PRN (Reason: Acid Reflux) amlodipine 10 mg tablet 10 mg PO DAILY citalopram 20 mg tablet 20 mg PO DAILY cyanocobalamin (vitamin B-12) [Vitamin B-12] 1,000 mcg Tablet 1,000 mcg PO DAILY ascorbic acid (vitamin C) [Vitamin C] 500 mg Tablet 500 mg PO DAILY cholecalciferol (vitamin D3) [Vitamin D3] 25 mcg (1,000 unit) Capsule 25 mcg PO DAILY Discontinued omeprazole 40 mg capsule,delayed release(DR/EC) 40 mg PO BID@0630,1630 Discharge Orders: Discharge Order (Routine); Ordered 02/23/24 Ordered By: Srikanth Baltazar Diet: Advance to usual diet Activity on Discharge: As tolerated Stand Alone Forms: Patient Portal Discharge page Print Language: French Care Plan Goals: recovery Health Concerns: pancreatitis, electrolyte abnormalities Plan of Treatment: avoid fatty foods and avoid etoh changed omeprazole to pepcid Assessment: see above
--- NOTE | 2024-02-23 13:01 | MHC.CM.PN ---
Pt is being medically cleared for discharge home self-care, pts to transport her home today.
== END 2024-02-23 11:00 | disposition home or self-care (01) | DRG 282 ==
LOC: HO.ED 15:37 → HO.EDOVER 16:02 → HO.IMC 17:20
PROVIDERS: Physician Assistant; Physician Assistant Medical; Admitting Provider Internal Medicine; Emergency Provider Student in an Organized Health Care Education/Training Program; PCP Family Medicine; Visit Provider Internal Medicine
DX: K85.20 Alcohol induced acute pancreatitis without necrosis or infection (principal); E83.42 Hypomagnesemia; E87.6 Hypokalemia; F17.210 Nicotine dependence, cigarettes, uncomplicated; Z71.6 Tobacco abuse counseling; I10 Essential (primary) hypertension; M79.7 Fibromyalgia; F10.20 Alcohol dependence, uncomplicated; K70.0 Alcoholic fatty liver; Z71.41 Alcohol abuse counseling and surveillance of alcoholic; Z79.899 Other long term (current) drug therapy
CPT/HCPCS: 36415; 74177; 76705; 80048; 80053; 80307; 81001; 81025; 82248; 82272; 83690; 83735; 85025; 85027; 93005; 99285; J0737; J1171; J1200; J2270; J2405; J3475; J7120; Q9967

== ENCOUNTER → 2024-02-22 12:15 | Outpatient (BNV) | payer OTHER, SELFPAY | PROVIDERS: Emergency Provider Student in an Organized Health Care Education/Training Program; PCP Family Medicine; Visit Provider Radiology Diagnostic Radiology | DX: R10.9 Unspecified abdominal pain (principal) | CPT/HCPCS: 74177; 76705 ==

== ENCOUNTER → 2024-02-22 13:31 | Outpatient (BNV) | payer OTHER, SELFPAY | PROVIDERS: Admitting Provider Internal Medicine; Emergency Provider Student in an Organized Health Care Education/Training Program; PCP Family Medicine; Visit Provider Internal Medicine Cardiovascular Disease | DX: R94.31 Abnormal electrocardiogram [ECG] [EKG] (principal); K85.90 Acute pancreatitis without necrosis or infection, unspecified | CPT/HCPCS: 93010 ==

== ENCOUNTER → 2024-02-22 15:56 | Outpatient (BNV) | payer OTHER, SELFPAY | PROVIDERS: Admitting Provider Internal Medicine; Emergency Provider Student in an Organized Health Care Education/Training Program; PCP Family Medicine; Visit Provider Internal Medicine | DX: E83.42 Hypomagnesemia (principal); F10.20 Alcohol dependence, uncomplicated; K85.00 Idiopathic acute pancreatitis without necrosis or infection | CPT/HCPCS: 99223; 99239 ==

== ENCOUNTER 2024-09-24 08:31 | Emergency (ER) | payer OTHER, SELFPAY ==
--- NOTE | ~2024-09-24 | US_ITS ---
EXAMINATION: US TRIPLEX LOWER EXTREMITY, RIGHT CLINICAL INFORMATION: Swelling and pain, right lower extremity COMPARISON: None available. TECHNIQUE: Color-flow triplex imaging with spectral analysis and compression Doppler were performed on the right lower extremity. FINDINGS: Respiratory variation, normal compression and augmented flow are present in the interrogated right common femoral vein, superficial femoral vein, profunda femoral vein, popliteal vein and midcalf peroneal and posterior tibial venous segments . There is no Jaramillo's cyst. US/US venous duplex LE RT IMPRESSION: No acute deep venous thrombosis interrogated veins, right lower extremity. Negative for DVT. Electronically signed by: Devaughn Cedeño MD 09/24/2024 09:40 AM EDT
[2024-09-24 08:34] VITALS: BP 133/91; PULSE 110; RESP 18; TEMP 36.6; O2SAT 95; BMI 39.1
--- NOTE | 2024-09-24 08:35 | ED.EXTPRO ---
HPI - Extremity Problem General Chief complaint: Extremity Injury, Lower Stated complaint: r leg issue Time Seen by Provider: 09/24/24 11:44 History of Present Illness HPI Narrative: this is RME portion of note please see separate attending note Related Data Home Medications ?Medication ?Instructions ?Recorded ?Confirmed amlodipine 10 mg tablet 10 mg PO DAILY 01/04/24 02/22/24 gabapentin 600 mg tablet 600 mg PO TID 01/04/24 02/22/24 sucralfate 1 gram tablet 1 g PO QID PRN Acid Reflux 01/04/24 02/22/24 ascorbic acid (vitamin C) 500 mg 500 mg PO DAILY 02/22/24 02/22/24 tablet (Vitamin C) cholecalciferol (vitamin D3) 25 25 mcg PO DAILY 02/22/24 02/22/24 mcg (1,000 unit) capsule (Vitamin D3) citalopram 20 mg tablet 20 mg PO DAILY 02/22/24 02/22/24 cyanocobalamin (vitamin B-12) 1,000 mcg PO DAILY 02/22/24 02/22/24 1,000 mcg tablet (Vitamin B-12) Previous Rx's ?Medication ?Instructions ?Recorded famotidine 20 mg tablet (Pepcid) 20 mg PO DAILY #90 tabs 02/23/24 oxycodone 5 mg tablet 5 mg PO Q6H PRN pain (scale score 02/23/24 7-10) #7 tabs Allergies Allergy/AdvReac Type Severity Reaction Status Date / Time No Known Allergies Allergy Verified 09/24/24 08:36 [facility] Past Medical History Medical History Pancreatitis Fibromyalgia HTN (hypertension) Social History Social History Household Members: Spouse Housing: House Do you presently have visiting nurse or other home services: No Alcohol intake: current Alcohol intake frequency: holidays/special occasions only Patient Tobacco Use Status: Current everyday Tobacco user Tobacco use type: Cigarette Cigarette Packs Per Day: 1 Cigarettes Per Day: 20.0 e-Cigarette/Vaping Use: Never Used Second Hand Smoke Exposure: No service: No Physical Exam Vital Signs: Vital Signs: Last Vital Signs Temp 98.1 F 09/24/24 12:02 Pulse 102 H 09/24/24 12:02 Resp 18 09/24/24 12:02 BP 136/88 09/24/24 12:02 Pulse Ox 96 09/24/24 12:02 O2 Del Method Room Air 09/24/24 12:02 BMI result Body Mass Index 39.1 Course Course Course Narrative: 53 yo female with PMH of pancreatitis, fibromyalgia, low magnesium here with c/o 6 weeks of R lower extremity pain and calf pain. She is on gabapentin she reports increase in leg swelling both legs she is on chlorthalidone but she states it is not helping. She states she cannot walk due to the pain. No preceding travel or procedures. At this time will obtain basic labs and DVT study of RLE. Time frame of less than 2 months of 75lbs. States her PCP did not check labs. labs ordered, EKG, DVT study this is a RAPID medical screening exam the rest of the history and physical exam is to be done by the main provider. AMINATA 09/24/24 838am Medical Decision Making Lab Data 09/24/24 08:55 09/24/24 08:55 Labs: Lab Results 09/24/24 Range/Units 08:55 WBC 5.4 (4.8-10.8) X10*3/uL RBC 4.42 D (4.20-5.50) X10*6/uL Hgb 12.5 (12.0-16.0) g/dl Hct 37.0 (37.0-47.0) % MCV 83.7 (80.0-98.0) fL MCH 28.3 (27.0-33.0) pg MCHC 33.8 (31.0-35.0) g/dl RDW 14.6 (11.0-16.0) % Plt Count 274 D (160-400) X10*3/uL MPV 8.8 L (9.4-12.3) fL Immature Gran % (Auto) 0.4 (0.0-0.4) % Neut % (Auto) 49.3 (45-73) % Lymph % (Auto) 39.0 (20-40) % [place] % (Auto) 9.4 (2-11) % Eos % (Auto) 1.5 (0-4) % Baso % (Auto) 0.4 (0-2) % Lymph # (Auto) 2.1 (1.2-4.9) X10*3/uL [place] # (Auto) 0.5 (0.1-1.2) X10*3/uL Eos # (Auto) 0.1 (0.0-0.4) X10*3/uL Baso # (Auto) 0.0 (0.0-0.2) X10*3/uL Abs Immat Gran (auto) 0.02 (0.00-0.03) X10*3/uL Absolute Neuts (auto) 2.7 (2.0-8.3) x10*3/uL Absolute Nucleated RBC 0.000 (0.0-0.012) X10*3/uL Nucleated RBC % (auto) 0.0 (0.0-0.2) /100WBC Sodium 139 (135-145) mmol/L Potassium 3.9 D (3.3-5.1) mmol/L Chloride 104 (96-108) mmol/L Carbon Dioxide 25 (22-29) mmol/L Anion Gap 14 (12-20) BUN 19 H (9-16) mg/dL Creatinine 0.69 (0.5-1.4) mg/dL Estim Creat Clear Calc 107.6 Estimated GFR > 60 Random Glucose 135 H (60-115) mg/dL Calcium 9.4 D (8.4-10.2) mg/dL Magnesium 1.8 (1.6-2.6) mg/dL Total Bilirubin 0.8 (0.0-1.0) mg/dL Direct Bilirubin 0.2 (0.0-0.5) mg/dL AST 16 (5-31) U/L ALT 11 (0-31) U/L Alkaline Phosphatase 96 (39-117) U/L B-Natriuretic Peptide < 10 (<100) pg/mL Total Protein 8.1 H (6.5-8.0) g/dL Albumin 4.5 (3.5-5.0) g/dL TSH 0.80 (0.32-4.0) uIU/mL Discharge Plan Discharge Clinical Impression: Leg pain, Leg swelling Patient Disposition: Home, Self-Care Instructions: Leg Edema (ED), Leg Pain (ED), Venous Insufficiency (DC) Additional Instructions: Recommend follow up with primary care provider and vascular surgeon. Return to the ED immediately for any severe pain, redness, bluish black discoloration, red streaks, hotness, coldness, numbness/tingling, fever, chills, or any other concerning symptoms. Continue taking [id number] Motrin/Tylenol for pain relief. Prescriptions: No Action gabapentin 600 mg tablet 600 mg PO TID sucralfate 1 gram tablet 1 g PO QID PRN (Reason: Acid Reflux) amlodipine 10 mg tablet 10 mg PO DAILY citalopram 20 mg tablet 20 mg PO DAILY cyanocobalamin (vitamin B-12) [Vitamin B-12] 1,000 mcg Tablet 1,000 mcg PO DAILY ascorbic acid (vitamin C) [Vitamin C] 500 mg Tablet 500 mg PO DAILY cholecalciferol (vitamin D3) [Vitamin D3] 25 mcg (1,000 unit) Capsule 25 mcg PO DAILY famotidine [Pepcid] 20 mg tablet 20 mg PO DAILY Qty: 90 0RF oxycodone 5 mg tablet 5 mg PO Q6H PRN (Reason: pain (scale score 7-10)) Qty: 7 0RF Rx Instructions: Partial Fill upon patient request. Referrals: Edmund Arambula MD [Primary Care Provider, Internal Medicine] - 3 days Referral Note: Right leg swelling, leg edema, venous stasis insufficiency Clinical Impression: Leg pain; Leg swelling Salty Menon MD [Physician, Vascular Surgery] - 2 days Referral Note: Right leg swelling, leg edema, venous stasis insufficiency? Clinical Impression: Leg pain; Leg swelling Interventions: ED Discharge Assessment Last Done: 09/24/24 12:02 Discharge Date/Time: 09/24/24 12:03 Print Language: Mozambican
--- NOTE | 2024-09-24 08:38 | ECG_ITS ---
Test Reason : leg swelling Blood Pressure : */* mmHG Vent. Rate : 110 BPM Atrial Rate : 110 BPM P-R Int : 178 ms QRS Dur : 82 ms QT Int : 350 ms P-R-T Axes : 45 45 58 degrees QTcB Int : 473 ms Sinus tachycardia Nonspecific ST and T wave abnormality Abnormal ECG When compared with ECG of 22-Feb-2024 15:11, Nonspecific T wave abnormality now evident in Lateral leads Referred By: Vivienne Carrasco Electronically Signed By: Lance Almaguer
[2024-09-24 09:00] LABS: MANUAL DIFF FLAG NO
[2024-09-24 09:01] LABS: Hematocrit 37.0 % (37.0-47.0); Hemoglobin 12.5 g/dl (12.0-16.0); Imm Gran Abs Auto 0.02 X10*3/uL (0.00-0.03); Imm Gran Pct Auto 0.4 % (0.0-0.4); Lymphocytes Absolute Auto 2.1 X10*3/uL (1.2-4.9); Mean Corpuscular HGB Conc 33.8 g/dl (31.0-35.0); Mean Corpuscular Hemoglobin 28.3 pg (27.0-33.0); Mean Corpuscular Volume 83.7 fL (80.0-98.0); NRBC Abs Auto 0.000 X10*3/uL (0.0-0.012); NRBC Pct Auto 0.0 /100WBC (0.0-0.2); Platelet Count 274 X10*3/uL (160-400); Red Blood Count 4.42 X10*6/uL (4.20-5.50); White Blood Count 5.4 X10*3/uL (4.8-10.8)
[2024-09-24 09:19] LABS: Alanine Aminotransferase 11 U/L (0-31); Albumin Level 4.5 g/dL (3.5-5.0); Alkaline Phosphatase 96 U/L (39-117); Anion Gap 14 (12-20); Aspartate Amino Transferase 16 U/L (5-31); Blood Urea Nitrogen 19 mg/dL (9-16); Calcium 9.4 mg/dL (8.4-10.2); Carbon Dioxide 25 mmol/L (22-29); Chloride 104 mmol/L (96-108); Creatinine Clr Calc Pharmacy 107.6; Estimated Glomerular Filt Rate > 60; Magnesium 1.8 mg/dL (1.6-2.6); Potassium 3.9 mmol/L (3.3-5.1); Sodium 139 mmol/L (135-145); Total Protein 8.1 g/dL (6.5-8.0)
[2024-09-24 09:24] LABS: B Type Natriuretic Peptide < 10 pg/mL (<100)
--- NOTE | 2024-09-24 11:50 | ED.GENADULT ---
HPI - General Adult General Chief complaint: Extremity Injury, Lower Stated complaint: r leg issue Time Seen by Provider: 09/24/24 11:44 Source: patient Mode of arrival: ambulatory Limitations: no limitations History of Present Illness ED Provider: Tray Amaya HPI narrative: 53 yold female presents to the ED for right calf/leg pain for the past 6 weeks with intermittedn swelling of feet. patient denies any chest pain, shortnesss of breath, recent travel, recent surgery, or control use Related Data Home Medications ?Medication ?Instructions ?Recorded ?Confirmed amlodipine 10 mg tablet 10 mg PO DAILY 01/04/24 02/22/24 gabapentin 600 mg tablet 600 mg PO TID 01/04/24 02/22/24 sucralfate 1 gram tablet 1 g PO QID PRN Acid Reflux 01/04/24 02/22/24 ascorbic acid (vitamin C) 500 mg 500 mg PO DAILY 02/22/24 02/22/24 tablet (Vitamin C) cholecalciferol (vitamin D3) 25 25 mcg PO DAILY 02/22/24 02/22/24 mcg (1,000 unit) capsule (Vitamin D3) citalopram 20 mg tablet 20 mg PO DAILY 02/22/24 02/22/24 cyanocobalamin (vitamin B-12) 1,000 mcg PO DAILY 02/22/24 02/22/24 1,000 mcg tablet (Vitamin B-12) Previous Rx's ?Medication ?Instructions ?Recorded famotidine 20 mg tablet (Pepcid) 20 mg PO DAILY #90 tabs 02/23/24 oxycodone 5 mg tablet 5 mg PO Q6H PRN pain (scale score 02/23/24 7-10) #7 tabs Allergies Allergy/AdvReac Type Severity Reaction Status Date / Time No Known Allergies Allergy Verified 09/24/24 08:36 Review of Systems Review of Systems: right leg/calf pain/foot swelling Yes all other systems are reviewed and are negative PMFSH Past Medical History Medical History Pancreatitis Fibromyalgia HTN (hypertension) Social History Social History Household Members: Spouse Housing: House Do you presently have visiting nurse or other home services: No Alcohol intake: current Alcohol intake frequency: holidays/special occasions only Patient Tobacco Use Status: Current everyday Tobacco user Tobacco use type: Cigarette Cigarette Packs Per Day: 1 Cigarettes Per Day: 20.0 e-Cigarette/Vaping Use: Never Used Second Hand Smoke Exposure: No service: No Physical Exam ED Vital Signs: Vital Signs - 24 hr 09/24/24 08:34 Temperature 97.9 F Pulse Rate 110 H Respiratory Rate 18 Blood Pressure 133/91 H Pulse Oximetry 95 Oxygen Delivery Method Room Air BMI result Body Mass Index 39.1 Const General: cooperative, healthy appearing, comfortable, no acute distress and well developed Orientation/consciousness: patient oriented x3 [facility] Head: Yes normal to inspection, Yes No palpable skull fracture present, Yes normocephalic, Yes atraumatic and No abrasion Eyes General: appearance normal, both eyes and all related structures Neck Neck: Yes normal visual inspection, Yes full ROM, Yes no lymphadenopathy, Yes no meningeal signs, Yes trachea midline, Yes supple, No anterior neck swelling and No tender Chest Chest palpation & inspection: normal inspection of the chest and normal palpation of entire chest wall Resp Effort & Inspection: normal respiratory effort and able to speak in complete sentences Auscultation: clear to auscultation bilaterally Cardio Jugular venous distension: no JVD Heart sounds: S1 normal heart sound present and S2 normal heart sound present GI Inspection: Yes normal to inspection Palpation (GI): Soft to palpation, not firm, nontender, no guarding and not rigid General: Yes no CVA tenderness Back/Spine/Pelvis Back: no CVA tenderness and No back tenderness Skin General skin exam: no rashes or lesions noted, elasticity normal and turgor normal Neuro General: patient oriented x3, gait normal, tone normal, moves all extremities, Normal light touch and pain sensation, no meningeal signs, no focal motor deficits, CN's II-XI intact bilaterally and normal sensation to monofilament Extrem General: Yes normal to inspection, Yes full ROM and Yes capillary refill normal Ankle/foot/toe images:  1. pitting swelling edema. no redness, ecchymosis, deformity,crepitus, hotness, or coldness. rest of extremity is normal. motor, neuro, and vascular exam is intact. Psych Appearance: grossly normal, well kempt and not disheveled Medical Decision Making Medical Decision Making MDM Narrative: 53-year-old female history of hypokalemia and hypomagnesemia and pancreatitis presents to ED for right leg intermittent swelling and pain without any recent long travel, recent surgery or trauma. Patient denies any chest pain or shortness of breath. Patient denies any fever chill or redness. Labs normal and negative for any signs of electrolyte abnormalities. Ultrasound negative for DVT. Physical exam negative for signs of cellulitis, compartment syndrome, arterial occlusion, osteomyelitis, necrotizing fasciitis, or any other life-threatening etiology. Patient explained worrisome signs and informed to return to the ED immediately. Patient given contact information for vascular surgeon. Patient informed to continue taking hoeo-gty-uishisa Motrin Tylenol for pain relief. Differential Diagnosis Differential Diagnoses: The differential diagnosis associated with the presentation includes (DVT, arterial occlusion, colitis) Admission/Observation Consideration of admission/observation: Escalation of care including admission/observation considered Lab Data 09/24/24 08:55 09/24/24 08:55 Labs: Lab Results 09/24/24 Range/Units 08:55 WBC 5.4 (4.8-10.8) X10*3/uL RBC 4.42 D (4.20-5.50) X10*6/uL Hgb 12.5 (12.0-16.0) g/dl Hct 37.0 (37.0-47.0) % MCV 83.7 (80.0-98.0) fL MCH 28.3 (27.0-33.0) pg MCHC 33.8 (31.0-35.0) g/dl RDW 14.6 (11.0-16.0) % Plt Count 274 D (160-400) X10*3/uL MPV 8.8 L (9.4-12.3) fL Immature Gran % (Auto) 0.4 (0.0-0.4) % Neut % (Auto) 49.3 (45-73) % Lymph % (Auto) 39.0 (20-40) % [place] % (Auto) 9.4 (2-11) % Eos % (Auto) 1.5 (0-4) % Baso % (Auto) 0.4 (0-2) % Lymph # (Auto) 2.1 (1.2-4.9) X10*3/uL [place] # (Auto) 0.5 (0.1-1.2) X10*3/uL Eos # (Auto) 0.1 (0.0-0.4) X10*3/uL Baso # (Auto) 0.0 (0.0-0.2) X10*3/uL Abs Immat Gran (auto) 0.02 (0.00-0.03) X10*3/uL Absolute Neuts (auto) 2.7 (2.0-8.3) x10*3/uL Absolute Nucleated RBC 0.000 (0.0-0.012) X10*3/uL Nucleated RBC % (auto) 0.0 (0.0-0.2) /100WBC Sodium 139 (135-145) mmol/L Potassium 3.9 D (3.3-5.1) mmol/L Chloride 104 (96-108) mmol/L Carbon Dioxide 25 (22-29) mmol/L Anion Gap 14 (12-20) BUN 19 H (9-16) mg/dL Creatinine 0.69 (0.5-1.4) mg/dL Estim Creat Clear Calc 107.6 Estimated GFR > 60 Random Glucose 135 H (60-115) mg/dL Calcium 9.4 D (8.4-10.2) mg/dL Magnesium 1.8 (1.6-2.6) mg/dL Total Bilirubin 0.8 (0.0-1.0) mg/dL Direct Bilirubin 0.2 (0.0-0.5) mg/dL AST 16 (5-31) U/L ALT 11 (0-31) U/L Alkaline Phosphatase 96 (39-117) U/L B-Natriuretic Peptide < 10 (<100) pg/mL Total Protein 8.1 H (6.5-8.0) g/dL Albumin 4.5 (3.5-5.0) g/dL TSH 0.80 (0.32-4.0) uIU/mL Independent Historian Clinical information obtained from an independent historian. History obtained from or confirmed by: Other (patient) Prescription Management I considered prescription management with: Pain Medication Discharge Plan Discharge Clinical Impression: Leg pain, Leg swelling Patient Disposition: Home, Self-Care Instructions: Leg Edema (ED), Leg Pain (ED), Venous Insufficiency (DC) Additional Instructions: Recommend follow up with primary care provider and vascular surgeon. Return to the ED immediately for any severe pain, redness, bluish black discoloration, red streaks, hotness, coldness, numbness/tingling, fever, chills, or any other concerning symptoms. Continue taking pmuy-knr-jkybhbn Motrin/Tylenol for pain relief. Prescriptions: No Action gabapentin 600 mg tablet 600 mg PO TID sucralfate 1 gram tablet 1 g PO QID PRN (Reason: Acid Reflux) amlodipine 10 mg tablet 10 mg PO DAILY citalopram 20 mg tablet 20 mg PO DAILY cyanocobalamin (vitamin B-12) [Vitamin B-12] 1,000 mcg Tablet 1,000 mcg PO DAILY ascorbic acid (vitamin C) [Vitamin C] 500 mg Tablet 500 mg PO DAILY cholecalciferol (vitamin D3) [Vitamin D3] 25 mcg (1,000 unit) Capsule 25 mcg PO DAILY famotidine [Pepcid] 20 mg tablet 20 mg PO DAILY Qty: 90 0RF oxycodone 5 mg tablet 5 mg PO Q6H PRN (Reason: pain (scale score 7-10)) Qty: 7 0RF Rx Instructions: Partial Fill upon patient request. Referrals: Edmund Arambula MD [Primary Care Provider, Internal Medicine] - 3 days Referral Note: Right leg swelling, leg edema, venous stasis insufficiency Clinical Impression: Leg pain; Leg swelling Salty Menon MD [Physician, Vascular Surgery] - 2 days Referral Note: Right leg swelling, leg edema, venous stasis insufficiency? Clinical Impression: Leg pain; Leg swelling Interventions: ED Discharge Assessment Last Done: 09/24/24 12:02 Discharge Date/Time: 09/24/24 12:03 Print Language: Mongolian
[2024-09-24 12:02] VITALS: BP 136/88; PULSE 102; RESP 18; TEMP 36.7; O2SAT 96
--- OUTSIDE RECORDS SUMMARY | 2024-09-24 12:52 | XMS_ITS | Clinical Summary ---
Author Organization [facility] Address [id number] [place] [id number] Care Team Providers Care Job Boss Name Role Phone Unavailable Primary Care Provider Unavailabl e Surgical History Surgery Date Site/Laterality Comments OVARIAN CYST REMOVAL PROCEDURE: MD OVARIAN CYSTECTOMY UNI/BI OTHER SURGICAL HISTORY 1991 PROCEDURE: BREAST TISSUE SPCMN PATHOLOGY EXAM; COMMENT: fibroadenoma SECTION PROCEDURE: MD DELIVERY ONLY; COMMENT: x 2 TUBAL LIGATION PROCEDURE: HISTORICAL TUBAL LIGATION Medical History Medical History Date Comments Unspecified sinusitis (chronic) 08/29/2005 DX:Unspecified sinusitis (chronic) Tobacco use disorder 08/29/2005 DX:Tobacco use disorder Hemorrhage of gastrointestin al tract, unspecified 12/26/2005 DX:Hemorrhage of gastrointes tinal tract, unspecified; COMMENT: Admitted to [facility] 12.22.05 with melena. History of heartburn as well. Upper GI endoscopy 12.23.05, Dr. Esqueda, was completely normal except for a small hiatal hernia. No evidence of reflux esophagitis. HTN (hypertension) DX:HTN (hyper tension) Heart attack (CMS/HCC V24, C MS/HCC V28) 04/2019 DX:Heart attack (HCC) Family History Medical History Relation Name Comments Breast cancer Aunt mat Hypertension Father Other: Bipolar Mother Thyroid disease Mother Grave's Stroke Other mat GGM Diabetes Paternal Grandmother Relation Name Status Comments Aunt Father Alive Mother Alive Other Paternal Grandmother Social History Tobacco Use Types Packs/Day Years Used Date Smoking Tobacco: Every Day Cigarettes Smokeless Tobacco: Never Alcohol Use Standard Drinks/Week Comments Yes 0 (1 standard drink = 0.6 oz pur e alcohol) Comments Unknown Sex and Gender Information Value Date Recorded Sex Assigned at Not on file Legal Sex Female 3:00 PM EST Gender Identity Not on file Sexual Orientation Not on file Obstetrics History Plan of Treatment Health Maintenance Due Date Last Done Comments Breast Cancer Screening 1970 Hepatitis B Vaccines (1 of 3 - 19+ 3-dose series) 10/07/1990 Pneumococcal Vaccine: 50+ Years (1 of 2 - PCV) 10/07/1990 Pneumococcal Vaccine: Pediatrics (0 to 5 Years) and At-Risk Patients (6 to 49 Years) (1 of 2 - PCV) 10/07/1990 Cervical Cancer Screening: P ap Smear 10/07/1992 Zoster Vaccines (1 of 2) 10/07/2021 Colorectal Cancer Screening: Colonoscopy 02/16/2022 Depression Screening 02/16/2022 HIV Screening 02/16/2022 Hepatitis C Screening 02/16/2022 Social Influencers of Health Screening 02/16/2022 COVID-19 Vaccine (2 - 2023-2 5 season) 2023 08/21/2020 Influenza Vaccine (#1) 2024 0, 04/18/2019 DTaP,Tdap,and Td Vaccines (2 - Td or Tdap) 07/18/2031 07/17/2021 HIB Vaccines Aged Out No longer eligi ble based on patient's age to complete this topic HPV Vaccines Aged Out No longer eligi ble based on patient's age to complete this topic Hepatitis A Vaccines Aged Out No long er eligible based on patient's age to complete this topic IPV Vaccines Aged Out No longer eligi ble based on patient's age to complete this topic MMR Vaccines Aged Out No longer eligi ble based on patient's age to complete this topic Meningococcal ACWY Vaccine Aged Out N o longer eligible based on patient's age to complete this topic Meningococcal B Vaccine Aged Out No l onger eligible based on patient's age to complete this topic RSV Immunization Patients Under 20 months Aged Out No longer eligible b ased on patient's age to complete this topic Varicella Vaccines Aged Out No longer eligible based on patient's age to complete this topic
== END 2024-09-24 12:03 | disposition home or self-care (01) ==
PROVIDERS: Emergency Medicine; Emergency Provider Emergency Medicine Emergency Medical Services; PCP Family Medicine
DX: M79.661 Pain in right lower leg (principal); R60.0 Localized edema; I10 Essential (primary) hypertension; F17.210 Nicotine dependence, cigarettes, uncomplicated
CPT/HCPCS: 36415; 80048; 80076; 83735; 83880; 84443; 85025; 93005; 93971; 99283; 99284

== ENCOUNTER → 2024-09-24 08:38 | Outpatient (BNV) | payer OTHER, SELFPAY | PROVIDERS: PCP Family Medicine; Visit Provider Radiology Diagnostic Radiology | DX: R22.41 Localized swelling, mass and lump, right lower limb (principal) | CPT/HCPCS: 93971 ==

== ENCOUNTER → 2024-09-24 08:38 | Outpatient (BNV) | payer OTHER, SELFPAY | PROVIDERS: Emergency Provider Emergency Medicine Emergency Medical Services; PCP Family Medicine; Visit Provider Internal Medicine Cardiovascular Disease | DX: R00.0 Tachycardia, unspecified (principal) | CPT/HCPCS: 93010 ==

== ENCOUNTER 2024-10-08 15:35 | Outpatient (AMB) | payer OTHER, SELFPAY ==
--- NOTE | 2024-10-08 15:35 | MHC.OFFVIS ---
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 Patient states she stopped smoking and drinking in March of 2024. She experienced weight gain and leg swelling. States her feet swell. Patient has trouble walking, standing is painful. The right leg is worse. About a week ago , her right leg woke her up from her sleep due to the pain. 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 Complaints include pain over varicosities, swelling of lower extremities, cramping, fatigue, and heaviness of the lower extremities. She provided pictures of swollen feet. It has been affecting there daily activities including walking. It is noted more so in right leg. She reports significant weight gain over the last several months after she quit smoking and drinking in early April. She reports that since all of this she has had significant weight gain in increasing constipation. She usually had bowel movements 2 to 3 times a day and is now going every other day. Also of note history of fibromyalgia. Patient denies any previous venous surgery or injections. Patient denies any history of DVT/ PE. Negative for DVT on ultrasound dated 09/24/2024 Patient denies any history of phlebitis. Trial of compression includes - [id number] recommended They now present for vascular evaluation regarding their varicose veins. [facility] Medical History Pancreatitis Fibromyalgia HTN (hypertension) Social History Household Members: Spouse Housing: House Do you presently have visiting nurse or other home services: No Alcohol intake: current Alcohol intake frequency: holidays/special occasions only Patient Tobacco Use Status: Current everyday Tobacco user Tobacco use type: Cigarette Cigarette Packs Per Day: 1 Cigarettes Per Day: 20.0 e-Cigarette/Vaping Use: Never Used Second Hand Smoke Exposure: No service: No Review of Systems Const Reports as per HPI ENT Reports no additional complaints Card Denies chest pain, Denies chest pain at rest and Denies chest pain with activity Resp Denies chest congestion and Denies cough GI Reports no additional complaints Musc Details: pain over varicosities, aching of lower extremities, swelling, cramping, heaviness and tiredness, itching Denies abnormal gait Skin/Breast Reports pruritus and Denies wounds Neuro Reports no additional complaints and Denies abnormal gait Psych Denies no additional complaints Physical Exam Const General: cooperative, healthy appearing and comfortable Orientation/consciousness: oriented to person, oriented to place and oriented to time Neck Carotids: no bruits Chest Chest palpation & inspection: normal inspection of the chest and normal palpation of entire chest wall Resp Effort & Inspection: normal respiratory effort and able to speak in complete sentences Cardio Rate: regular rate Heart sounds: S1 normal heart sound present and S2 normal heart sound present Peripheral pulses: Peripheral pulses 2+ throughout GI Inspection: Yes normal to inspection Skin Other: +2 edema, right greater than left CEAP Classification C4 - skin color changes Ep - Etiology Primary As - superficial veins P - reflux General skin exam: dry skin Neuro General: oriented to person, oriented to place and oriented to time Extrem Right lower extremity: full ROM, normal capillary refill and edema Left lower extremity: full ROM, normal capillary refill and edema Psych Mental Status: mental status grossly normal Assessment & Plan Assessment & Plan (1) Varicose veins of right lower extremity with inflammation: Code(s): I83.11 - Varicose veins of right lower extremity with inflammation Category: Medical Plan: In short, the patient has evidence of venous insufficiency. I have discussed the pathophysiology with the patient. In addition I have provided informational material regarding venous disease to the patient. We have discussed conservative measures including compression, elevation, and exercise. I have also provided a handout regarding appropriate use of compression stockings and where to purchase good compression stockings as well. I have taken the liberty of ordering venous insufficiency testing with the patient. They will follow up with me after testing. The patient had an opportunity to ask questions regarding the treatment plan. All questions were answered. Imaging studies, laboratory studies and physical exam results were discussed and reviewed in detail. No major barriers to understanding were identified. The patient expressed understanding and agreement with the above treatment plan. The patient is aware they should contact our office by phone for worsening of the current condition or the appearance of new symptoms. Thank you for allowing me to participate in the vascular care of this patient. If you have any questions or concerns regarding the treatment for the above condition please do not hesitate to contact me. The office telephone contact is [phone]. This note is constructed using voice recognition software. While every effort has been made to ensure accuracy, microsystems engineer errors may have been included. Thank you for allowing me to participate in the care of your patient. Yours sincerely, Salty Menon MD, FACS, R.P.V.I. Coding Level of Care Code New Pt Level 4 (66485) Diagnoses Varicose veins of right lower extremity with inflammation I83.11
--- OUTSIDE RECORDS SUMMARY | 2024-10-08 16:25 | XMS_ITS | Clinical Summary ---
Author Organization [facility] Address [id number] [place] [id number] Care Team Providers Care Ethics Instructor Name Role Phone Unavailable Primary Care Provider Unavailabl e Surgical History Surgery Date Site/Laterality Comments OVARIAN CYST REMOVAL PROCEDURE: SC OVARIAN CYSTECTOMY UNI/BI OTHER SURGICAL HISTORY 1991 PROCEDURE: BREAST TISSUE SPCMN PATHOLOGY EXAM; COMMENT: fibroadenoma SECTION PROCEDURE: SC DELIVERY ONLY; COMMENT: x 2 TUBAL LIGATION PROCEDURE: HISTORICAL TUBAL LIGATION Medical History Medical History Date Comments Unspecified sinusitis (chronic) 08/29/2005 DX:Unspecified sinusitis (chronic) Tobacco use disorder 08/29/2005 DX:Tobacco use disorder Hemorrhage of gastrointestin al tract, unspecified 12/26/2005 DX:Hemorrhage of gastrointes tinal tract, unspecified; COMMENT: Admitted to [facility] 12.22.05 with melena. History of heartburn [...] Years (1 of 2 - PCV) 10/07/1990 Cervical Cancer Screening: P ap Smear 10/07/1992 Zoster Vaccines (1 of 2) 10/07/2021 Colorectal Cancer Screening: Colonoscopy 02/16/2022 HIV Screening 02/16/2022 Hepatitis C Screening 02/16/2022 Social Influencers of Health Screening 02/16/2022 COVID-19 Vaccine (2 - 2023-2 5 season) 2023 08/21/2020 Depression Screening 03/20/2024 Influenza Vaccine (#1) 2024 , 04/18/2019 DTaP,Tdap,and Td Vaccines (2 - Td [...]
== END 2024-10-08 15:58 | disposition home or self-care (01) ==
LOC: HO.HVS 15:35
PROVIDERS: PCP Family Medicine; Visit Provider Surgery Vascular Surgery
DX: I83.11 Varicose veins of right lower extremity with inflammation (principal)
CPT/HCPCS: 99204

== ENCOUNTER 2025-03-12 15:33 | Emergency (ER) | payer OTHER, SELFPAY ==
--- NOTE | ~2025-03-12 | CT_ITS ---
CLINICAL HISTORY: R abd pain , BRBPR CT abdomen and pelvis with contrast Comparison: CT/IA/SR - CT ABDOMEN PELVIS WITH IV CONTRAST - 02/22/24 14:35 EST Findings: Lung bases: Tree-in-bud nodularity of the right middle lobe and to a lesser extent, the right lower lobe. Subsegmental atelectasis of the left lower lobe. Liver: Hepatic steatosis. No focal lesions. No biliary ductal dilatation. Patent portal vein. Gallbladder: Noninflamed gallbladder. Spleen: Normal Pancreas: Minimal mesenteric edema surrounding the peripancreatic fat. Punctate calcification in the pancreatic uncinate process, likely due to chronic inflammation. No solid mass or main duct dilation. Adrenal glands: No nodules. Kidneys: No hydronephrosis. No stones. No solid mass. Pelvic organs: Hysterectomy. Calcification in the left adnexal region, likely benign. Peritoneum and Gastrointestinal: No bowel obstruction, pneumoperitoneum, or ascites. Colonic diverticulosis without acute diverticulitis. Noninflamed appendix. Lymph nodes: No lymphadenopathy. Vessels: Atherosclerosis. Bones and soft tissues: Unremarkable. Small fat containing umbilical hernia. IMPRESSION: Minimal mesenteric edema surrounding the peripancreatic fat could represent acute interstitial edematous pancreatitis in the appropriate clinical setting. Correlate with symptoms and lipase levels. No peripancreatic fluid collection. Hepatic steatosis. Tree-in-bud nodularity of the right middle lobe. Correlate for infectious/inflammatory process. This document has been electronically signed by: Jacqui Luke MD on 03/12/2025 20:22:15
--- NOTE | 2025-03-12 15:35 | ED.GENADULT ---
HPI - General Adult General Chief complaint: GI Bleed Stated complaint: Rectal Bleeding Time Seen by Provider: 03/12/25 18:08 History of Present Illness ED Provider: brad MCKAY narrative: Author / Clinician: Pj Rubin MD Chief Complaint Bright red rectal bleeding and right-sided abdominal pain History of Present Illness The patient presents with a two-day history of bright red blood per rectum. She notes the blood is seen in the toilet bowl and describes a sensation of it ?running/dripping out.? She reports associated rectal pain and a feeling that ?something is there.? She also reports abdominal pain that began , localized to the right mid-abdomen, described as painful and constant. She has taken an antacid and a blood pressure medication daily without relief. She denies vomiting, hematemesis, upper abdominal pain in the epigastric region, or changes in appetite. Patient reports 5?6 previous colonoscopies. She has had rectal bleeding before. She denies use of aspirin, Plavix, Lovenox, or other anticoagulants. She has no history of blood clots. Recent CBC in the ED shows blood counts within normal limits per conversation. Patient has been tolerating oral intake. --- Review of Systems Gastrointestinal: Positive bright red rectal bleeding, rectal pain, right mid-abdominal pain, sensation of rectal mass/fullness. Denies vomiting, hematemesis. Hematologic: Denies history of blood clots. Other systems: Not discussed. --- Physical Examination Vital Signs: Measure Value ------- ----- Physical Exam: Gen: Alert, awake, well appearing, well hydrated. Head: Atraumatic. Eyes: Anicteric, normal conjunctiva. ENT: Moist mucosa, no pallor. Neck: Supple. Skin: Warm, well perfused, no rash noted. Respiratory: Breathing comfortably, no distress. Clear to auscultation bilaterally, symmetric chest expansion, no wheeze, rales, or rhonchi. Cardiovascular: Regular rate and rhythm. No murmurs or rubs. Well-perfused periphery, warm extremities. No edema. Abdominal: Soft, non-distended. Focal tenderness to palpation over right mid-abdomen; no rebound or guarding. No palpable masses. Neuro: Alert. Gross movement of all extremities intact. Psych: Calm. --- Assessment & Plan Preliminary Differential: - Hematochezia / lower GI bleeding of unclear source - Right-sided abdominal pain ? rule out colitis, diverticulitis, mass, or other intra-abdominal pathology Medical Decision Making This is a 65-year-old female with acute bright red rectal bleeding and right-sided abdominal pain. Prior colonoscopies without polyps noted. Labs today show normal blood counts, suggesting no significant acute blood loss. Given ongoing bleeding and abdominal pain, cross-sectional imaging is warranted to evaluate for intra-abdominal pathology or source of bleeding. --- Risk: - High: Threat to life/bodily Functions Plan: Initial Plan - CT abdomen/pelvis ordered. - Continue to monitor vitals and stool output; patient to alert staff for any large bowel movements or increased bleeding. Data Analysis: - Imaging: Independently interpretation of CT A/P pending - ECG: Independent interpretation of the ECG: [ ] - POCUS: if performed independently see separate documentation Additional Complexity: - Social Determinants of health: Alcohol use disorder - Consults: [ ] - Independent review of External records available: [ ] --- ED Course, Updates stable hemoglobin no large bloody bowel movement or rapid hemorrhage. CT without clearly definable bleeding source or other acute emergent pathology or surgical pathology strict return precautions and follow up with PCP to follow up nonemergent CT findings were explained at length to the patient who understood Patient evaluated, labs reviewed (CBC WNL). CT A/P ordered; results pending at time of note. Disposition discharge Pending imaging and clinical reassessment. Critical Care: [N/A] Medications Home: Daily antacid (name unspecified), antihypertensive (specific agent not provided). Past Medical History History of pancreatitis (per patient report). Past Surgical / Procedural History Five to six prior colonoscopies (no polyps or bleeding reported). Social History Alcohol: Drinks alcohol (frequency not specified). Tobacco: Denies use. Illicit drugs: Denies use. Related Data Home Medications ?Medication ?Instructions ?Recorded ?Confirmed amlodipine 10 mg tablet 10 mg PO DAILY 01/04/24 02/22/24 gabapentin 600 mg tablet 600 mg PO TID 01/04/24 02/22/24 sucralfate 1 gram tablet 1 g PO QID PRN Acid Reflux 01/04/24 02/22/24 ascorbic acid (vitamin C) 500 mg 500 mg PO DAILY 02/22/24 02/22/24 tablet (Vitamin C) cholecalciferol (vitamin D3) 25 25 mcg PO DAILY 02/22/24 02/22/24 mcg (1,000 unit) capsule (Vitamin D3) citalopram 20 mg tablet 20 mg PO DAILY 02/22/24 02/22/24 cyanocobalamin (vitamin B-12) 1,000 mcg PO DAILY 02/22/24 02/22/24 1,000 mcg tablet (Vitamin B-12) Previous Rx's ?Medication ?Instructions ?Recorded famotidine 20 mg tablet (Pepcid) 20 mg PO DAILY #90 tabs 02/23/24 oxycodone 5 mg tablet 5 mg PO Q6H PRN pain (scale score 02/23/24 7-10) #7 tabs Allergies Allergy/AdvReac Type Severity Reaction Status Date / Time No Known Allergies Allergy Verified 03/12/25 15:39 [facility] Past Medical History Medical History Pancreatitis Fibromyalgia HTN (hypertension) Social History Social History Household Members: Spouse Housing: House Do you presently have visiting nurse or other home services: No Alcohol intake: current Alcohol intake frequency: holidays/special occasions only Patient Tobacco Use Status: Current everyday Tobacco user Tobacco use type: Cigarette Cigarette Packs Per Day: 1 Cigarettes Per Day: 20.0 Smoked in Last 30 Days: No e-Cigarette/Vaping Use: Never Used Second Hand Smoke Exposure: No Use of substances other than those prescribed or required for medical reasons: No Advance Directives: No Advance Directives Information Provided: No Patient : No service: No Physical Exam ED Vital Signs: Vital Signs - 24 hr 03/12/25 19:19 03/12/25 20:59 Temperature 98.4 F 98.4 F Pulse Rate 89 88 Respiratory Rate 19 19 Blood Pressure 118/85 123/88 Pulse Oximetry 94 97 Oxygen Delivery Method Room Air Room Air BMI result Body Mass Index 37.8 Course Course Course Narrative: This is a rapid medical exam performed by Rochelle Lott NP: Additional HPI, ROS, PE not included below will be deferred to primary provider. Patient is a 54y/o F with pmhx of hemorrhoids, pancreatitis presenting to the ED with complaint of rectal bleeding for the past 4 days. C/O RLQ abdominal pain. Plan: Labs Medications Administered Discontinued Medications Generic Name Dose Route Start Last Admin Trade Name Veronika PRN Reason Stop Dose Admin Acetaminophen 1,000 mg in 100 mls @ 400 mls/hr 03/12/25 19:20 03/12/25 19:54 Ofirmev IV 03/12/25 19:34 Infused ONCE ONE Infusion Iohexol 100 ml 03/12/25 19:43 03/12/25 19:50 Iohexol 350 Mg/Ml 100 Ml Infus..Btl IV 03/12/25 19:44 85 ml ONCE ONE Administration Morphine Sulfate 2 mg 03/12/25 19:20 03/12/25 19:28 Morphine Sulfate 4 Mg/Ml Cartridge IVPUSH 03/12/25 19:21 2 mg ONCE ONE Administration Protocol Medical Decision Making Lab Data 03/12/25 19:16 03/12/25 16:01 Labs: Lab Results 03/12/25 03/12/25 03/12/25 Range/Units 16:01 16:08 19:16 WBC 4.8 4.4 L (4.8-10.8) X10*3/uL RBC 4.18 L 3.99 L (4.20-5.50) X10*6/uL Hgb 12.8 12.2 (12.0-16.0) g/dl Hct 37.3 35.1 L (37.0-47.0) % MCV 89.2 88.0 (80.0-98.0) fL MCH 30.6 30.6 (27.0-33.0) pg MCHC 34.3 34.8 (31.0-35.0) g/dl RDW 17.1 H 16.9 H (11.0-16.0) % Plt Count 252 254 (160-400) X10*3/uL MPV 9.7 9.8 (9.4-12.3) fL Immature Gran % (Auto) 0.4 0.2 (0.0-0.4) % Neut % (Auto) 33.5 L 39.2 L (45-73) % Lymph % (Auto) 54.9 H 50.0 H (20-40) % [place] % (Auto) 9.3 9.0 (2-11) % Eos % (Auto) 1.1 0.9 (0-4) % Baso % (Auto) 0.8 0.7 (0-2) % Lymph # (Auto) 2.6 2.2 (1.2-4.9) X10*3/uL [place] # (Auto) 0.4 0.4 (0.1-1.2) X10*3/uL Eos # (Auto) 0.1 0.0 (0.0-0.4) X10*3/uL Baso # (Auto) 0.0 0.0 (0.0-0.2) X10*3/uL Abs Immat Gran (auto) 0.02 0.01 (0.00-0.03) X10*3/uL Absolute Neuts (auto) 1.6 L 1.7 L (2.0-8.3) x10*3/uL Absolute Nucleated RBC 0.000 0.000 (0.0-0.012) X10*3/uL Nucleated RBC % (auto) 0.0 0.0 (0.0-0.2) /100WBC PT 12.0 (11.2-13.5) SEC INR 1.0 (0.9-1.1) Sodium 142 (135-145) mmol/L Potassium 3.5 (3.3-5.1) mmol/L Chloride 104 (96-108) mmol/L Carbon Dioxide 23 (22-29) mmol/L Anion Gap 19 (12-20) BUN 10 (9-16) mg/dL Creatinine 0.73 (0.5-1.4) mg/dL Estim Creat Clear Calc 102.3 Estimated GFR > 60 Random Glucose 101 (60-115) mg/dL Calcium 9.2 (8.4-10.2) mg/dL Total Bilirubin 0.6 (0.0-1.0) mg/dL AST 96 H (5-31) U/L ALT 48 H (0-31) U/L Alkaline Phosphatase 103 (39-117) U/L Total Protein 8.2 H (6.5-8.0) g/dL Albumin 4.5 (3.5-5.0) g/dL Lipase 17 (8-78) U/L Urine Color Dark Yellow Urine Appearance Clear Urine pH 5.5 (5.0-9.0) Ur Specific [place] 1.020 (1.005-1.025) Urine Protein 100 (2+) H (Neg-Trace) mg/dL Urine Glucose (UA) Negative (Negative) mg/dL Urine Ketones Trace (Negative) mg/dL Urine Blood Negative (Negative) Urine Nitrite Negative (Negative) Ur Leukocyte Esterase Trace H (Negative) Urine RBC 0-2 (0-2) /HPF Urine WBC 0-5 (0-5) /HPF Ur Squamous Epith Cells 6-10 (0-2) /HPF Urine Bacteria 1+ (None Seen) Hyaline Casts 0-2 (0-2) /LPF Blood Type A Positive Antibody Screen NEGATIVE Discharge Plan Discharge Clinical Impression: RB (rectal bleeding) Abdominal pain Qualifiers: Abdominal location: epigastric Qualified Code(s): R10.13 - Epigastric pain Patient Disposition: Home, Self-Care Instructions: Rectal Bleeding (ED), Abdominal Pain (ED) Additional Instructions: Today in the emergency department you had a CT scan that showed some possible mild signs of pancreas inflammation though you did not have elevated pancreas enzyme level. Daily alcohol drinking can cause chronic or recurrent acute pancreatitis which you may have. We strongly recommend you stop drinking alcohol. If you have heavy or rapid or severe rectal bleeding return back if you feel lightheaded or develop severe abdominal pain return back to the emergency department Prescriptions: No Action gabapentin 600 mg tablet 600 mg PO TID sucralfate 1 gram tablet 1 g PO QID PRN (Reason: Acid Reflux) amlodipine 10 mg tablet 10 mg PO DAILY citalopram 20 mg tablet 20 mg PO DAILY cyanocobalamin (vitamin B-12) [Vitamin B-12] 1,000 mcg Tablet 1,000 mcg PO DAILY ascorbic acid (vitamin C) [Vitamin C] 500 mg Tablet 500 mg PO DAILY cholecalciferol (vitamin D3) [Vitamin D3] 25 mcg (1,000 unit) Capsule 25 mcg PO DAILY famotidine [Pepcid] 20 mg tablet 20 mg PO DAILY Qty: 90 0RF oxycodone 5 mg tablet 5 mg PO Q6H PRN (Reason: pain (scale score 7-10)) Qty: 7 0RF Rx Instructions: Partial Fill upon patient request. Interventions: ED Discharge Assessment Last Done: 03/12/25 20:59 Discharge Date/Time: 03/12/25 21:01 Print Language: Welsh
[2025-03-12 15:36] VITALS: BP 134/89; PULSE 107; RESP 18; TEMP 35.9; O2SAT 94; BMI 37.8
--- NOTE | 2025-03-12 16:04 | MHC.EDTECH ---
Patient said it is against her shinto to get a blood transfusion
[2025-03-12 16:12] LABS: MANUAL DIFF FLAG NO
[2025-03-12 16:15] LABS: Hematocrit 37.3 % (37.0-47.0); Hemoglobin 12.8 g/dl (12.0-16.0); Imm Gran Abs Auto 0.02 X10*3/uL (0.00-0.03); Imm Gran Pct Auto 0.4 % (0.0-0.4); Lymphocytes Absolute Auto 2.6 X10*3/uL (1.2-4.9); Mean Corpuscular HGB Conc 34.3 g/dl (31.0-35.0); Mean Corpuscular Hemoglobin 30.6 pg (27.0-33.0); Mean Corpuscular Volume 89.2 fL (80.0-98.0); NRBC Abs Auto 0.000 X10*3/uL (0.0-0.012); NRBC Pct Auto 0.0 /100WBC (0.0-0.2); Platelet Count 252 X10*3/uL (160-400); Red Blood Count 4.18 X10*6/uL (4.20-5.50); White Blood Count 4.8 X10*3/uL (4.8-10.8)
[2025-03-12 16:20] LABS: Appearance Urine Clear; Glucose Urine UA Negative (Negative); PH 5.5 (5.0-9.0); Specific Gravity - Urine 1.020 (1.005-1.025); UMIC TRIGGER UACC YES
[2025-03-12 16:23] LABS: INTERNATIONAL NORM RATIO 1.0 (0.9-1.1); Prothrombin Time 12.0 SEC (11.2-13.5)
[2025-03-12 16:38] LABS: Alanine Aminotransferase 48 U/L (0-31); Albumin Level 4.5 g/dL (3.5-5.0); Alkaline Phosphatase 103 U/L (39-117); Anion Gap 19 (12-20); Aspartate Amino Transferase 96 U/L (5-31); Blood Urea Nitrogen 10 mg/dL (9-16); Calcium 9.2 mg/dL (8.4-10.2); Carbon Dioxide 23 mmol/L (22-29); Chloride 104 mmol/L (96-108); Creatinine Clr Calc Pharmacy 102.3; Estimated Glomerular Filt Rate > 60; Potassium 3.5 mmol/L (3.3-5.1); Sodium 142 mmol/L (135-145); Total Protein 8.2 g/dL (6.5-8.0)
[2025-03-12 19:19] VITALS: BP 118/85; PULSE 89; RESP 19; TEMP 36.9; O2SAT 94
[2025-03-12 19:25] LABS: Hematocrit 35.1 % (37.0-47.0); Hemoglobin 12.2 g/dl (12.0-16.0); Imm Gran Abs Auto 0.01 X10*3/uL (0.00-0.03); Imm Gran Pct Auto 0.2 % (0.0-0.4); Lymphocytes Absolute Auto 2.2 X10*3/uL (1.2-4.9); MANUAL DIFF FLAG NO; Mean Corpuscular HGB Conc 34.8 g/dl (31.0-35.0); Mean Corpuscular Hemoglobin 30.6 pg (27.0-33.0); Mean Corpuscular Volume 88.0 fL (80.0-98.0); NRBC Abs Auto 0.000 X10*3/uL (0.0-0.012); NRBC Pct Auto 0.0 /100WBC (0.0-0.2); Platelet Count 254 X10*3/uL (160-400); Red Blood Count 3.99 X10*6/uL (4.20-5.50); White Blood Count 4.4 X10*3/uL (4.8-10.8)
[2025-03-12 19:38] LABS: Lipase 17 U/L (8-78)
[2025-03-12] MEDS: iohexoL 350 MG/ML 100 ML INFUS..BTL IV (19:50)
[2025-03-12 20:59] VITALS: BP 123/88; PULSE 88; RESP 19; TEMP 36.9; O2SAT 97
== END 2025-03-12 21:01 | disposition home or self-care (01) ==
PROVIDERS: Registered Nurse Emergency; Emergency Provider Emergency Medicine; PCP Family Medicine
DX: K62.5 Hemorrhage of anus and rectum (principal); R10.13 Epigastric pain; R10.31 Right lower quadrant pain; I10 Essential (primary) hypertension; F17.210 Nicotine dependence, cigarettes, uncomplicated; Z79.899 Other long term (current) drug therapy
CPT/HCPCS: 36415; 74177; 80053; 81001; 83690; 85025; 85610; 86850; 86900; 86901; 96365; 96375; 99285; J0131; J2270; Q9967

== ENCOUNTER → 2025-03-12 18:17 | Outpatient (BNV) | payer OTHER, SELFPAY | PROVIDERS: Emergency Provider Emergency Medicine; PCP Family Medicine; Visit Provider Student in an Organized Health Care Education/Training Program | DX: K76.0 Fatty (change of) liver, not elsewhere classified (principal); K65.4 Sclerosing mesenteritis | CPT/HCPCS: 74177 ==